=== PATIENT | female | born 1930 | race Caucasian/White ===

== ENCOUNTER 2017-02-16 12:41 | Observation (INO) | payer MEDICARE, MEDICAID ==
[2017-02-16] MEDS ORDERED: Docusate Sodium 100 MG Cap PO PRN (15:27)
[2017-02-16] MEDS ORDERED: Magnesium Hydroxide 400 MG/5 ML Susp 30 ML Cup PO PRN (15:27)
[2017-02-16] MEDS ORDERED: Polyvinyl Alcohol 1.4% Ophth Soln 15 ML Bottle EYEBOTH PRN (15:31)
[2017-02-16] MEDS ORDERED: Warfarin 2.5 MG Tab PO SCH (16:15)
[2017-02-16] MEDS: Furosemide 40 MG Tab PO SCH (16:24)
[2017-02-16] MEDS: Metolazone 2.5 MG Tab PO SCH (16:24)
[2017-02-16] MEDS: Acetaminophen/HYDROcodone 325-5 MG Tab PO SCH ×2 (16:43→20:15)
[2017-02-16] MEDS ORDERED: Menthol/Methyl Salicylate 85 GM Tube TOP PRN (16:50)
[2017-02-16] MEDS ORDERED: Menthol/Methyl Salicylate 85 GM Tube TOP SCH (17:00)
[2017-02-16] MEDS ORDERED: atorvaSTATin 10 MG Tab PO SCH (21:00)
--- NOTE | 2017-02-16 21:03 | HP ---
CHIEF COMPLAINT: The patient is being admitted from clinic where she was noted to have severe bradycardia with heart rate dropping down to 40s. HISTORY OF PRESENTING ILLNESS: Mrs. Alexandre Moreno is an 86-year-old female with medical history significant for hypertension; hyperlipidemia; type 2 diabetes mellitus; coronary artery disease, status post coronary artery bypass graft x2 in the past; chronic kidney disease; atrial fibrillation, on anticoagulation with Coumadin; monoclonal gammopathy of unknown significance; obesity; peripheral vascular disease; osteoarthritis; gout. She was initially evaluated in the clinic an on visitation, the patient was noted to have bradycardia and transferred here. At this time, patient denies any complaints of chest pain. No shortness of breath. No abdominal pain. No nausea. No vomiting. No diarrhea. No fevers. No chills. No cough. No sputum for the last few days. Lately, her metoprolol dose was increased from 25 to 37.5 mg to better control her blood pressure and as a result, is noted to have bradycardia. She also complains of increased swelling to her lower extremities. The patient denied any history of chest pains on exertion, but has mild dyspnea on exertion. No history of orthopnea, no history of paroxysmal nocturnal dyspnea. The patient denies any history of hematemesis, hematochezia, or melenic stools. Normal bowel and bladder habits otherwise. REVIEW OF SYSTEMS: A complete review of system including skin, ear, nose, and throat, cardiovascular system, respiratory system, gastrointestinal system, genitourinary system, hematology, oncology, neurology, allergy, immunology, endocrinology, and constitutional were all evaluated and were negative except for the above said notes. PAST MEDICAL HISTORY: Significant for hypertension; hyperlipidemia; atrial fibrillation, on chronic anticoagulation with Coumadin; coronary artery disease, status post coronary artery bypass graft; obesity; monoclonal gammopathy of unknown significance; history of gout; epiglottitis in the past; chronic kidney disease; peripheral vascular disease; osteoarthritis. PAST SURGICAL HISTORY: 1. Significant for vaginal ureteral dilatation and curettage. 2. Tonsillectomy. 3. Hysterectomy. 4. Coronary artery bypass graft x2. 5. Cholecystectomy. FAMILY HISTORY: Significant for hypertension and heart disease in the family. SOCIAL HISTORY: The patient denies any history of smoking tobacco. No history of alcohol intake. The patient had history of smoking in the past, but quit smoking back in 1959. ALLERGIES: The patient noted to have allergy to contrast dyes. PHYSICAL EXAMINATION: Vital signs: Temperature of 98.2, pulse of 51, blood pressure 155/58, saturating at 95% on room air, and respiratory rate of 20. General Appearance: The patient is well oriented to time, place, and person. Follows commands spontaneously. Cardiovascular System: S1, S2 heard with normal intensity. No gallops. Respiratory System: Clear to auscultation bilaterally. No wheeze. No crepitations. Abdomen: Soft. Bowel sounds positive. Nontender. No rigidity. Extremities: 2+ pitting edema in bilateral lower extremities. Neurology: No gross focal neurological deficit appreciated. Skin: No acute rash noted on the skin. HOME MEDICATIONS: Include: 1. Allopurinol 100 mg daily. 2. Lipitor 10 mg at bedtime. 3. Aspirin 325 mg daily. 4. Hydrocodone and acetaminophen 1 tab 4 times a day. 5. Multivitamin 1 tablet daily. 7. Metolazone 2.5 mg daily. 8. Toprol-XL 37.5 mg daily. 9. Coumadin 2.5 mg every evening. 10.Lasix 40 mg twice a day. LABS: Obtained in the clinic shows sodium 142, potassium 5.1, chloride 102, bicarb 28, glucose 114, creatinine 2.3, and BUN 50. Coagulation 2.3. Hematology; WBC 8.9, hemoglobin 10.4, hematocrit 31.8, and platelet count 171. IMAGING: Chest x-ray shows no acute infiltrates, possible congestion. No alveolar edema or consolidation, dependant pleural fluid. No focal or lobar pneumonia. ASSESSMENT: 1. Bradycardia. 2. Possible acute on chronic congestive heart failure with possible diastolic dysfunction. 3. Hypertension. 4. Hyperlipidemia. 5. Coronary artery disease, status post coronary artery bypass graft. 6. Atrial fibrillation on chronic anticoagulation with Coumadin. 7. Obesity. PLAN: 1. Bradycardia. The patient noted to have bradycardia. Her metoprolol dose was recently increased to 37.5 mg, we will hold the metoprolol for now. As on the telemetry, she is noted to have a heart rate dropping down to 30s. She is also noted to have possible ventricular tachycardia. We will obtain 2D echocardiogram and also a 12-lead EKG for now. We will obtain serial cardiac enzymes. We will also order for a serum B-natriuretic peptide. We will closely follow. The patient denies any ongoing chest pain. She denies any shortness of breath or dyspnea on exertion at this time. 2. Possible acute on chronic congestive heart failure. The patient noted to have 2+ edema to the lower extremities. Chest x-ray suggestive of pulmonary congestion, but on physical examination, the patient does not have much crackles to the lung exam. We will get a serum B-natriuretic peptide. She is noted to be on Lasix and metolazone, we will increase the metolazone dose for now. We will closely monitor input, output, and daily weights. We will closely follow with electrolytes. We will get a magnesium level as she is noted to have nonsustained ventricular tachycardia on the telemetry unit. We will follow the 12-lead EKG. 3. Hypertension. The patient's blood pressure seems to be elevated at this time, could be compensatory hypertension secondary to bradycardia. We will hold the Toprol-XL. We will closely follow the patient and further titrate up the medication to optimize the blood pressure as needed. 4. Coronary artery disease. The patient denies any ongoing chest pain, but given her mild cardiac decompensation, we will order for serial cardiac enzymes and follow the 12-lead EKG. 5. DVT prophylaxis. The patient is currently on Coumadin, continue the same. Pharmacy to dose the Coumadin for therapeutic INR of 2-3. 6. Chronic kidney disease, remains stable. The patient's creatinine is at 2.3. We will recheck a basic metabolic panel in a.m. Avoid any nephrotoxic agents. Dose adjust medications for renal function. 7. Discussed with Dr. Jaswant Herman, primary care physician, regarding the plan of care. Discussed with the patient and family members regarding the plan of care. Reviewed the labs and medications. Reviewed the old charts. [facility] /[id number] MTDD
[2017-02-17] MEDS ORDERED: Aspirin 325 MG Tab.EC PO SCH (08:00)
[2017-02-17] MEDS: Metolazone 2.5 MG Tab PO SCH (08:22)
[2017-02-17] MEDS: Furosemide 40 MG Tab PO SCH (08:22)
[2017-02-17] MEDS: Acetaminophen/HYDROcodone 325-5 MG Tab PO SCH (08:27)
[2017-02-17] MEDS ORDERED: Allopurinol 100 MG Tab PO SCH (09:00)
[2017-02-17] MEDS ORDERED: Calcitriol 0.25 MCG Cap PO SCH (09:00)
[2017-02-17] MEDS ORDERED: Lutein/Minerals/Vit A,C & E Tab PO SCH (09:00)
[2017-02-17] MEDS ORDERED: Multivitamins,Therapeutic Tab PO SCH (09:00)
[2017-02-17 10:55] VITALS: BP 148/41
--- NOTE | 2017-02-17 11:29 | EKG ---
02/16/2017 - AIDAN BRAND - A 12-lead EKG shows atrial fibrillation with right axis deviation and bradycardia with heart rate of 50. No significant ST elevation or ST depression noted on this 12-lead EKG. [facility] /[id number]
--- NOTE | 2017-02-17 14:50 | EKG ---
02/17/2017 - CATHIEAIDAN BEATRIZ - 12-lead EKG shows junctional escape rhythm with no significant ST elevation or ST depression. Nonspecific T-wave changes noted on lead V2. [facility] /[id number]
--- NOTE | 2017-02-17 14:52 | DISCH ---
ADMITTING DIAGNOSIS: Bradycardia. DISCHARGE DIAGNOSES: 1. Severe bradycardia with heart rate dropping down to 30 to 37. 2. Acute on chronic congestive heart failure, still awaiting for echocardiogram for evaluating diastolic versus systolic dysfunction, but previous echocardiogram showed evidence of good ejection fraction suggesting possible diastolic dysfunction at this time. 3. Acute hypoxic respiratory failure from underlying bradycardia and congestive heart failure exacerbation. 4. Atrial fibrillation, on chronic anticoagulation with Coumadin. HISTORY OF PRESENTING ILLNESS: Mrs. Alexandre Moreno is an 86-year-old female with medical history significant for hypertension; hyperlipidemia; coronary artery disease, status post coronary artery bypass graft x2 in the past; chronic kidney disease; atrial fibrillation, on chronic anticoagulation with Coumadin; monoclonal gammopathy of unknown significance; obesity; peripheral vascular disease, presented to the hospital with complaints of increasing bradycardia. She was initially evaluated in the clinic. She was noted to be on Toprol-XL and recently changed to 37.5 mg, so we admitted her under observation status and had on telemetry unit. She had persistent bradycardia with heart rate dropping down to 30 to 37 frequently. We discontinued the Toprol-XL and even after that she is noted to have bradycardia. She was also noted to be in acute on chronic congestive heart failure. She was on oral Lasix and metolazone. We continued the same while in the hospital and she was noted to have a drop in weight up to 3 pounds, and also her edema is much improved from the time of admission, but she was noted to be hypoxic this morning. As she would need further evaluation, the patient will be transferred to higher level of care that is [facility], the closest facility for Cardiology evaluation and possible pacemaker placement. She remained hemodynamically stable on this admission. She is discharged to [facility] in stable condition. She will require ground ambulance for the transfer with ALS on board. DISCHARGE MEDICATIONS: Include: 1. Allopurinol 100 mg daily. 2. Aspirin 325 mg daily. 3. Calcitriol 0.25 mg daily. 4. Lasix 40 mg twice a day. 5. Hydrocodone acetaminophen 1 tablet 4 times a day. 6. Salicylate cream topical 4 times daily as needed for pain. 7. Metolazone 2.5 mg twice a day. 8. Multivitamin 1 tablet daily. 9. Coumadin 2.5 mg every evening. 10.Lipitor 10 mg at bedtime. The patient is advised to stop taking her Toprol-XL 37.5 mg. PHYSICAL EXAMINATION: Vital Signs: On the day of discharge; temperature of 98.2, pulse of 45, respiratory rate of 20, blood pressure 149/42, saturating at 97%, requiring 2 L of oxygen. General Appearance: The patient is well oriented to time, place, and person. Follows commands spontaneously. Cardiovascular System: S1 and S2 heard with normal intensity. Irregular in rate. Respiratory System: Mild crepitations at the bases. No wheeze. Abdomen: Soft. Bowel sounds positive. Nontender. No rigidity. Extremities: 1 to 2+ pitting edema of bilateral lower extremities, improved from the time of admission. Neurology: No gross focal neurological deficit. Skin: No acute rash noted. CONDITION ON ADMISSION: Poor. CONDITION ON DISCHARGE: Stable. Discharged to [facility] for Cardiology evaluation for severe bradycardia. ACTIVITY: As tolerated with fall precautions. DIET: Cardiac healthy diet. FOLLOWUP: Follow with primary care physician one to two weeks post discharge from [facility]. Spent over 35 minutes of time in evaluating and treating this patient, and making discharge plans. [facility] /[id number]
== END 2017-02-17 10:15 ==
LOC: UNDOADMOB 15:21 → DL.MS 15:21
PROVIDERS: ADMIT Internal Medicine; ATTEND Internal Medicine
DX: R00.1 Bradycardia, unspecified (principal); I25.810 Atherosclerosis of coronary artery bypass graft(s) without angina pectoris; E11.22 Type 2 diabetes mellitus with diabetic chronic kidney disease; I13.0 Hypertensive heart and chronic kidney disease with heart failure and stage 1 through stage 4 chronic kidney disease, or unspecified chronic kidney disease; N18.9 Chronic kidney disease, unspecified; I50.33 Acute on chronic diastolic (congestive) heart failure; J96.01 Acute respiratory failure with hypoxia; I48.91 Unspecified atrial fibrillation; E78.5 Hyperlipidemia, unspecified; Z79.01 Long term (current) use of anticoagulants; I73.9 Peripheral vascular disease, unspecified; Z90.49 Acquired absence of other specified parts of digestive tract; Z90.710 Acquired absence of both cervix and uterus; Z98.890 Other specified postprocedural states; Z87.891 Personal history of nicotine dependence; Z91.041 Radiographic dye allergy status; E66.9 Obesity, unspecified
CPT/HCPCS: 36415; 71010; 80048; 83735; 83880; 84100; 84484; 85025; 93005; 93010; 93306; A9270; G0378; 99217; 99220; G0379

== ENCOUNTER 2017-04-26 08:00 | Emergency (ER) | payer MEDICARE, MEDICAID ==
--- NOTE | 2017-04-26 08:33 | EDM.PDOC ---
ED HPI GENERAL MEDICAL PROBLEM - General Chief Complaint: Flank Pain Stated Complaint: BY AMBULANCE Time Seen by Provider: 04/26/17 08:15 Source of Information: Reports: Patient, EMS History Limitations: Reports: No Limitations - History of Present Illness INITIAL COMMENTS - FREE TEXT/NARRATIVE: This 86 yo female patient was brought to the ED by [facility] due to right flank pain. The patient reports she has been having similar pains for the past 2 months, but her pain increased over the past 24 hours. The patient reports she does have an appointment this afternoon in the clinic and an appointment with a kidney specialist tomorrow. The patient reports she could not take the pain any longer and called the ambulance to bring her to the ED. The patient did not take any pain medications today for temporary symptom relief. This patient has a history of hypertension, hyperlipidemia, CHF, A-fib (on coumadin), CAD, Type 2 Diabetes, Coronary artery bypass x2, CKD, osteoarthritis, and gout. Onset: Gradual Duration: Day(s): (2), Constant, Getting Worse Location: Reports: Back (right flank) Quality: Reports: Ache, Sharp Severity: Severe Improves with: Reports: Rest Worsens with: Reports: Movement Context: Reports: Other Associated Symptoms: Reports: No Other Symptoms Right Lower Back Pain Score (Numeric/FACES): 5 - Related Data Allergies Allergy/AdvReac Type Severity Reaction Status Date / Time Beef Containing Products Allergy Stomach Verified 04/26/17 08:12 Upset IVP dye Allergy Cannot Uncoded 02/12/14 09:15 Remember Home Meds: Home Meds Aspirin [Ecotrin] 325 mg PO DAILY 02/12/14 [History] Lutein/Minerals/Vit A,C & E [Ocuvite] 1 tab PO DAILY 02/12/14 [History] Multivitamin [Multivitamins] 1 each PO DAILY 02/12/14 [History] Warfarin Sodium [Jantoven] 2.5 mg PO .EVENING 02/12/14 [History] atorvaSTATin [Lipitor] 10 mg PO BEDTIME 02/12/14 [History] Allopurinol [Zyloprim] 100 mg PO DAILY 02/16/17 [History] Calcitriol [Rocaltrol] 0.25 mcg PO ASDIRECTED 02/16/17 [History] Hydrocodone/Acetaminophen [Hydrocodon-Acetaminophen 5-325] 1 tab PO QID [History] Menthol/Methyl Salicylate [Icy Hot Cream] 0.1 gm TOP QID PRN 02/16/17 [History] [place]ol[place] 2[place] [address]/16/17 [History] Acetaminophen [Tylenol Arthritis] 1 tab PO QID PRN 04/26/17 [History] Bumetanide 1 mg PO DAILY 04/26/17 [History] Bumetanide [Bumex] 1 tab PO DAILY 04/26/17 [History] Metoprolol Succinate [Toprol XL] 37.5 mg PO DAILY 04/26/17 [History] Propylene Glycol/Peg 400 [Systane Liquid Gel Eye Drops] 1 drop EYEBOTH QID PRN 04/26/17 [History] Past Medical History HEENT History: Reports: Cataract, Macular Degeneration Cardiovascular History: Reports: Afib, CAD, Heart Failure, High Cholesterol, Hypertension, Pacemaker, Other (See Below) Other Cardiovascular History: peripheral vascular disease Respiratory History: Reports: Pneumonia, Recurrent Gastrointestinal History: Reports: Cholelithiasis Genitourinary History: Reports: Chronic Renal Insuffiency Musculoskeletal History: Reports: Gout, Osteoarthritis Psychiatric History: Reports: Anxiety Endocrine/Metabolic History: Reports: Hyperparathyroidism Hematologic History: Reports: Anemia - Past Surgical History HEENT Surgical History: Reports: Adenoidectomy, Cataract Surgery, Tonsillectomy Cardiovascular Surgical History: Reports: Coronary Artery Bypass GI Surgical History: Reports: Appendectomy, Cholecystectomy Female Surgical History: Reports: Hysterectomy Musculoskeletal Surgical History: Reports: None Social & Family History - Tobacco Use Smoking Status *Q: Former Smoker Years of Tobacco use: 6 Packs/Tins Daily: 3 Used Tobacco, but Quit: Yes Month Tobacco Last Used: 20 years ago Second Hand Smoke Exposure: Yes - Caffeine Use Caffeine Use: Reports: Coffee - Recreational Drug Use Recreational Drug Use: No ED ROS GENERAL - Review of Systems Review Of Systems: ROS reveals no pertinent complaints other than HPI. ED EXAM, GI/ABD - Physical Exam Exam: See Below Exam Limited By: No Limitations General Appearance: Alert, WD/WN, Moderate Distress Eyes: Bilateral: Normal Appearance, EOMI Ears: Normal External Exam, Normal Canal, Hearing Grossly Normal, Normal TMs Nose: Normal Inspection, Normal Mucosa, No Blood Throat/Mouth: Normal Inspection, Normal Lips, Normal Teeth, Normal Gums, Normal Oropharynx, Normal Voice, No Airway Compromise Head: Atraumatic, Normocephalic Neck: Normal Inspection, Supple, Non-Tender, Full Range of Motion Respiratory/Chest: No Respiratory Distress Cardiovascular: Normal Peripheral Pulses, Regular Rate, Rhythm, No Edema, No Gallop, No JVD, No Murmur, No Rub GI/Abdominal Exam: Normal Bowel Sounds, Soft, No Distention, No Abnormal Bruit, No Mass, Pelvis Stable, Tender (right lower quadrant tenderness to palpation) (Female) Exam: Deferred Rectal (Female) Exam: Deferred Back Exam: Decreased Range of Motion, Paraspinal Tenderness Extremities: Normal Inspection, Normal Range of Motion, Non-Tender, Normal Capillary Refill, No Pedal Edema Neurological: Alert, Oriented, CN II-XII Intact, Normal Cognition, Normal Gait, Normal Reflexes, No Motor/Sensory Deficits Psychiatric: Normal Affect, Normal Mood Skin Exam: Warm, Dry, Intact, Normal Color, No Rash Lymphatic: No Adenopathy Course - Vital Signs Last Recorded V/S: Last Vital Signs Temp 36.6 C 04/26/17 08:37 Pulse 69 04/26/17 08:37 Resp 20 04/26/17 08:37 BP 123/63 04/26/17 08:37 Pulse Ox 94 L 04/26/17 08:37 - Orders/Labs/Meds Labs: Laboratory Tests 04/26/17 04/26/17 04/26/17 Range/Units 08:24 08:24 08:24 WBC 9.7 (5.0-10.0) 10^3/uL RBC 4.09 L (4.2-5.4) 10^6/uL Hgb 12.1 (12.0-16.0) g/dL Hct 35.6 L (37.0-47.0) % MCV 87.0 (80-100) fL MCH 29.6 (27.0-34.0) pg MCHC 34.0 (33.0-35.0) g/dL Plt Count 214 (150-450) 10^3/uL Neut % (Auto) 75.4 H (42.2-75.2) % Lymph % (Auto) 13.7 L (20.5-50.1) % [place] % (Auto) 7.7 (2-8) % Eos % (Auto) 2.5 (1.0-3.0) % Baso % (Auto) 0.7 (0.0-1.0) % PT (9.0-12.0) SEC INR (0.9-1.2) Sodium 135 (135-145) mmol/L Potassium 3.3 L (3.6-5.0) mmol/L Chloride 93 L (101-111) mmol/L Carbon Dioxide 28.0 (21.0-31.0) mmol/L Anion Gap 17.3 BUN 53 H (7-18) mg/dL Creatinine 1.6 H (0.6-1.3) mg/dL Est Cr Clr Drug Dosing 19.59 mL/min Estimated GFR (MDRD) 30 BUN/Creatinine Ratio 33.12 Glucose 117 H (74-105) mg/dL Calcium 9.8 (8.4-10.2) mg/dl Total Bilirubin 0.7 (0.2-1.0) mg/dL AST 19 (10-42) IU/L ALT 12 (10-60) IU/L Alkaline Phosphatase 86 (42-121) IU/L B-Natriuretic Peptide 1950 H (0-100) pg/ml Total Protein 7.4 (6.7-8.2) g/dl Albumin 3.6 (3.2-5.5) g/dl Globulin 3.8 Albumin/Globulin Ratio 0.95 Urine Color (YELLOW) Urine Appearance (CLEAR) Urine pH (5.0-9.0) Ur Specific [place] (1.005-1.030) Urine Protein (NEGATIVE) Urine Glucose (UA) (NEGATIVE) Urine Ketones (NEGATIVE) Urine Occult Blood (NEGATIVE) Urine Nitrite (NEGATIVE) Urine Bilirubin (NEGATIVE) Urine Urobilinogen (0.2-1.0) mg/dL Ur Leukocyte Esterase (NEGATIVE) Urine RBC /HPF Urine WBC (0-5/HPF) /HPF Ur Epithelial Cells /HPF 04/26/17 04/26/17 Range/Units 08:24 08:27 WBC (5.0-10.0) 10^3/uL RBC (4.2-5.4) 10^6/uL Hgb (12.0-16.0) g/dL Hct (37.0-47.0) % MCV (80-100) fL MCH (27.0-34.0) pg MCHC (33.0-35.0) g/dL Plt Count (150-450) 10^3/uL Neut % (Auto) (42.2-75.2) % Lymph % (Auto) (20.5-50.1) % [place] % (Auto) (2-8) % Eos % (Auto) (1.0-3.0) % Baso % (Auto) (0.0-1.0) % PT 23.8 H (9.0-12.0) SEC INR 2.4 H (0.9-1.2) Sodium (135-145) mmol/L Potassium (3.6-5.0) mmol/L Chloride (101-111) mmol/L Carbon Dioxide (21.0-31.0) mmol/L Anion Gap BUN (7-18) mg/dL Creatinine (0.6-1.3) mg/dL Est Cr Clr Drug Dosing mL/min Estimated GFR (MDRD) BUN/Creatinine Ratio Glucose (74-105) mg/dL Calcium (8.4-10.2) mg/dl Total Bilirubin (0.2-1.0) mg/dL AST (10-42) IU/L ALT (10-60) IU/L Alkaline Phosphatase (42-121) IU/L B-Natriuretic Peptide (0-100) pg/ml Total Protein (6.7-8.2) g/dl Albumin (3.2-5.5) g/dl Globulin Albumin/Globulin Ratio Urine Color Yellow (YELLOW) Urine Appearance Clear (CLEAR) Urine pH 6.0 (5.0-9.0) Ur Specific [place] <= 1.005 (1.005-1.030) Urine Protein Negative (NEGATIVE) Urine Glucose (UA) Negative (NEGATIVE) Urine Ketones Negative (NEGATIVE) Urine Occult Blood Negative (NEGATIVE) Urine Nitrite Negative (NEGATIVE) Urine Bilirubin Negative (NEGATIVE) Urine Urobilinogen 0.2 (0.2-1.0) mg/dL Ur Leukocyte Esterase Trace H (NEGATIVE) Urine RBC Not seen /HPF Urine WBC 0-5 (0-5/HPF) /HPF Ur Epithelial Cells Rare /HPF Meds: Medications Discontinued Medications Generic Name Dose Route Start Last Admin Trade Name Freq PRN Reason Stop Dose Admin Hydrocodone Bitart/Acetaminophen 1 tab 04/26/17 09:14 04/26/17 09:20 [place] 325-10 Mg PO 04/26/17 09:15 1 tab ONETIME ONE Administration - Re-Assessments/Exams Free Text/Narrative Re-Assessment/Exam: 04/26/17 09:19 The patient was advised of the examination and lab results. The patient was given a [place] () for temporary symptom relief. 04/26/17 10:05 The patient reports her pain in much better now and is ready to go back to her home. Departure - Departure Time of Disposition: 10:05 Disposition: Home, Self-Care 01 Condition: Fair Clinical Impression: Low back strain Qualifiers: Encounter type: initial encounter Qualified Code(s): S39.012A - Strain of muscle, fascia and tendon of lower back, initial encounter - Discharge Information Instructions: Lumbosacral Strain, Back Pain, Adult, [id number] Forms: ED Department Discharge Care Plan Goals: The patient was advised of the examination and lab results during the visit. The patient was given an oral dose of [place] while in the ED. The patient was encouraged to remain active, but avoid heavy lifting or bending over the next 48 hours. If the patient has any additional symptoms or concerns, the patient should either follow-up with her primary care facility or return to the emergency department.
[2017-04-26 08:39] VITALS: BP 123/63
[2017-04-26] MEDS ORDERED: Acetaminophen/HYDROcodone 325-10 MG Tab PO ONE (09:14)
== END 2017-04-26 10:50 | disposition home or self-care (01) ==
LOC: DL.ED 08:00
DX: S39.012A Strain of muscle, fascia and tendon of lower back, initial encounter (principal); E78.5 Hyperlipidemia, unspecified; I50.9 Heart failure, unspecified; I48.91 Unspecified atrial fibrillation; I25.10 Atherosclerotic heart disease of native coronary artery without angina pectoris; I13.0 Hypertensive heart and chronic kidney disease with heart failure and stage 1 through stage 4 chronic kidney disease, or unspecified chronic kidney disease; E11.22 Type 2 diabetes mellitus with diabetic chronic kidney disease; N18.9 Chronic kidney disease, unspecified; M19.90 Unspecified osteoarthritis, unspecified site; E21.3 Hyperparathyroidism, unspecified; Z95.1 Presence of aortocoronary bypass graft; Z98.49 Cataract extraction status, unspecified eye; Z90.49 Acquired absence of other specified parts of digestive tract; Z90.710 Acquired absence of both cervix and uterus; Z87.891 Personal history of nicotine dependence; Z79.82 Long term (current) use of aspirin; Z79.01 Long term (current) use of anticoagulants; Z79.899 Other long term (current) drug therapy; Z91.018 Allergy to other foods; Z91.041 Radiographic dye allergy status; X58.XXXA Exposure to other specified factors, initial encounter
CPT/HCPCS: 36415; 80053; 81001; 83880; 85025; 85610; 99284; A9270; 99283

== ENCOUNTER 2018-09-23 11:11 | Inpatient (IN) | payer MEDICARE, MEDICAID ==
[2018-09-23] MEDS ORDERED: Bisacodyl 10 MG Supp RECTAL PRN (16:51)
[2018-09-23] MEDS ORDERED: Sodium Chloride 0.9% 10 ML Syringe FLUSH PRN (17:02)
[2018-09-23 18:00] LABS: ANION GAP 16.5
--- NOTE | 2018-09-23 18:13 | CT ---
Clinical history: 88-year-old female with CHF, stage IV renal failure, and "fluid retention" (20 pound weight gain) being considered for "aggressive IV diuresis" and possible hemodialysis. Evaluate for "third space" fluids. Scan technique: Volume acquisition of data unenhanced CT scan of the chest abdomen and pelvis obtained while the patient was lying supine on the Siemens multi slice scanner [place], [place]. All data archived in the PACS system for storage, reformatting/sagittal/coronal planes and study. Interpretation: Abnormal. 1. Large heart; extensive atheromatous calcifications (coronary arteries and aorta); cardiac pacemaker leads intact. 2. Generalized pulmonary venous congestion/cephalization but no alveolar edema. No pericardial effusion. 3. Asymmetric small (1/6 volume hemithorax) dependent right pleural effusion. (Underlying right lower lobe atelectasis) 4. *Generalized anasarca i.e. extensive subcutaneous cutaneous edema. 5. Small volume ascites identified over the liver capsule and in the dependent paracolic gutter, on the right. 6. No lung mass or focal lobar pneumonia. No abdominal or pelvic mass lesion (sigmoid diverticulosis). No lymphadenopathy. 7. Bilateral small scarred kidneys with normal configuration. No nephrolithiasis or signs of obstructive uropathy. 8. Osteopenia, multilevel disc disease and chronic arthritic changes of the dorsal lumbar spine. Dense calcifications normal caliber aorta i.e. no sign of aneurysm or dissection. CONCLUSION: Small dependent right pleural effusion and small collection of ascites mostly on the right. Anasarca.
[2018-09-23] MEDS: Acetaminophen/HYDROcodone 325-5 MG Tab PO PRN (19:36)
[2018-09-23] MEDS: Carvedilol 6.25 MG Tab PO SCH (19:37)
[2018-09-23] MEDS: Potassium Chloride 10 MEQ Tab.ER PO SCH (20:00)
[2018-09-23] MEDS ORDERED: Warfarin 2.5 MG Tab PO SCH (21:00)
[2018-09-23] MEDS ORDERED: Non-Formulary Medication 1 Each (Propylene Glycol/Peg 400 [Systane Liquid Gel Eye Drops] 1 EYEBOTH SCH (21:00)
[2018-09-23] MEDS ORDERED: hydrOXYzine HCl 25 MG Tab PO ONE (21:38)
[2018-09-23] MEDS ORDERED: Furosemide 100 MG in Sodium Chloride 0.9% 90 ML IV SCH (22:15)
[2018-09-23] MEDS: Furosemide 100 MG in Sodium Chloride 0.9% 90 ML IV SCH (22:24)
[2018-09-24] MEDS: Furosemide 100 MG in Sodium Chloride 0.9% 90 ML IV SCH ×4 (03:16→18:09)
[2018-09-24] MEDS ORDERED: Potassium Chloride 20 MEQ in Premix Bag 1 BAG IV ONE ×2 (06:37→09:33)
[2018-09-24] MEDS: Carvedilol 6.25 MG Tab PO SCH (07:31)
--- NOTE | 2018-09-24 07:44 | HP ---
REASON FOR ADMISSION: Anasarca and fluid overload with a background history of stage IV renal failure. Admitted for aggressive diuresis. HISTORY OF PRESENT ILLNESS: Mrs. Schroeder is an 88-year-old lady who is a resident of [facility] here in [place]. We received a call from the nurse engineering manager electronics there today that Dr. Teixeira, Mrs. Schroeder's Guide Changer, asked that she be referred to the hospital for admission and that we undertake aggressive diuresis. Mrs. Schroeder has a history of stage 4 kidney disease, as well as CHF with an ejection fraction of 35% to 40%, and has slowly been adding weight and edema over the last month and a half. Her documented weight on 08/05/2018 was 160 pounds; on 08/29/2018, her weight was 164 pounds; and today, her weight was 180.5 pounds at the time of admission. Dr. Teixeira had sent a message to [facility] asking that she be admitted, and that we begin treatment with IV Bumex and oral metolazone. She was made a direct admission for further evaluation and management. PAST MEDICAL HISTORY: Includes coronary artery disease with CABG in 1981 with revision in 1998, hypertension, peripheral vascular disease. Atrial fibrillation, on chronic Coumadin anticoagulation (INR 2 to 3). She has MGUS, which is stable, and is followed by Dr. Bejarano. She also has history of dyslipidemia, secondary hyperparathyroidism, moderate pulmonary hypertension, and gout. 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 She has been hospitalized for CHF and symptomatic bradycardia. Current diuretic therapy includes Bumex and metolazone. A recent echo shows an ejection fraction of 30% to 35%. There have been multiple changes made in her diuretic therapy, depending on weight gain, weight loss, overall condition. PAST SURGICAL HISTORY: Cardiac pacemaker placement in 2016, hysterectomy, appendectomy, cholecystectomy, D and C in 1966, tonsillectomy, and coronary artery bypass in 1981 and 1998 as mentioned above. SOCIAL HISTORY: She is . She and her reside at the [facility]. She has two twin daughters and a son. One of her daughters, Ratna, suffered cardiac arrest about 10 years ago. She had anoxic encephalopathy and has been in [facility] since that time. Her other daughter, Margareth Navarro, is Tiffanie's POA. MEDICATIONS: Her medication list from [facility] was reviewed and her Epic medications are reviewed and reconciled as well and placed in [facility]. ALLERGIES: She has allergies to beef flavor (unknown) and to iodinated contrast material to which she develops a rash. PHYSICAL EXAMINATION: General: She is a frail elderly lady who is lying comfortably in bed. She is alert, but in speaking to her, it is clear that she appears to have some cognitive impairment. HEENT: Unremarkable. ENT was clear. Chest: Showed clear but diminished bilateral breath sounds. Faint basilar crackles. Heart: Showed regular rate and rhythm. Abdomen: Obese and benign. Extremities: An overall skin exam showed significant edema, i.e., anasarca, with pitting edema above the level of the thighs. Neurological: There are no gross motor or sensory deficits. There is clearly some cognitive impairment. LABORATORY DATA: CBC showed a white count of 5.8, hemoglobin and hematocrit were 8 and 27, platelets 143,000. INR 3.1. Sodium 131, potassium 3.5, BUN 63 with a creatinine of 2.1. The GFR of 22 and a creatinine clearance of 14. Nonfasting blood sugar 111, magnesium 1.7. BNP was 2560. DIAGNOSTIC DATA: Prior to undertaking the diuresis, we opted for a noncontrast CT scan of the chest, abdomen and pelvis to rule out possibility of significant pleural effusions or ascites. CT scan showed cardiomegaly with extensive calcifications in the areas of the coronary arteries and aorta. Pacemaker leads were intact. There is generalized pulmonary venous congestion, but no alveolar edema. No pericardial effusion. There was asymmetric small dependent right pleural effusion. No significant fluid collection in the abdomen. There is generalized anasarca seen extensively in subcutaneous tissues. No pneumonia. IMPRESSION: An 88-year-old lady with stage 4 kidney disease, presents with anasarca and significant weight gain in the last month and a half. PLAN: Mrs. Schroeder was admitted as an acute inpatient, and we began diuresis. Dr. Teixeira had suggested IV Bumex, but this is not available to us, so she was started on IV furosemide at 20 mg/hour. Dr. Early will decide on the use of the metolazone. Dr. Teixeira's goal is to get her weight back down to 150 pounds. I am not sure how realistic this goal is. Overnight, between the time of admission and the following morning, she has diuresed almost 2 L. A Owen catheter was placed for more accurate measurement of her urinary output, and we will obtain daily weights as well. CONDITION AT THE TIME OF ADMISSION: Hemodynamically stable. CODE STATUS: DNR. DNI. (Discussed with MARÍA.) [facility] /[id number] MTDD
[2018-09-24] MEDS: Acetaminophen/HYDROcodone 325-5 MG Tab PO PRN ×3 (08:36→21:23)
[2018-09-24] MEDS: Metolazone 2.5 MG Tab PO SCH (08:39)
[2018-09-24] MEDS: Potassium Chloride 10 MEQ Tab.ER PO SCH ×4 (08:40→20:00)
[2018-09-24] MEDS: Carboxymethylcellulose Sodium 1% Ophth Gel 0.4 ML UD EYEBOTH SCH ×3 (08:50→20:00)
[2018-09-24] MEDS: hydrOXYzine HCl 25 MG Tab PO PRN ×2 (08:51→20:01)
[2018-09-24] MEDS ORDERED: MAGNESIUM CHLORIDE PO SCH (12:00)
--- NOTE | 2018-09-24 13:19 | PCM.PN ---
- General Info Date of Service: 09/24/18 Admission Dx/Problem (Free Text): admitted with: Generalized Anasarca, Volume overload, weight gain of 30 lbs in a one and half week Subjective Update: Pt was seen in room doing well, No increased shortness of breath, No nausea or vomiting, No fever or Chill Functional Status: Reports: Pain Controlled, Tolerating Diet, Urinating (has kelly Catheter) - Review of Systems General: Reports: Appetite (good). Denies: Fever, Weakness, Chills HEENT: Denies: Headaches, Sinus Congestion, Sore Throat, Visual Changes Pulmonary: Denies: Shortness of Breath, Cough, Wheezing Cardiovascular: Denies: Chest Pain, Dyspnea on Exertion, Lightheadedness Gastrointestinal: Denies: Abdominal Pain, Difficulty Swallowing, Nausea, Vomiting Genitourinary: Denies: Dysuria, Frequency, Burning, Urgency Musculoskeletal: Denies: Neck Pain, Shoulder Pain, Foot Pain Neurological: Denies: Numbness, Tingling, Tremors Psychiatric: Denies: Confusion, Anxiety - Patient Data Vitals - Most Recent: Last Vital Signs Temp 37.1 C 09/24/18 11:53 Pulse 77 09/24/18 11:53 Resp 18 09/24/18 11:53 BP 117/55 L 09/24/18 11:53 Pulse Ox 94 L 09/24/18 11:53 Weight - Most Recent: 80.422 kg I&O - Last 24 Hours: Intake & Output 09/23/18 09/24/18 09/24/18 22:59 06:59 14:59 Intake Total 250 639 309 Output Total 1150 1350 1450 Balance -720 -573 -9108 Lab Results Last 24 Hours: Laboratory Results - last 24 hr 09/23/18 09/23/18 09/23/18 Range/Units 17:33 17:33 17:33 WBC 5.8 (5.0-10.0) 10^3/uL RBC 3.87 L (4.2-5.4) 10^6/uL Hgb 8.0 L (12.0-16.0) g/dL Hct 26.9 L (37.0-47.0) % MCV 69.5 L (80-100) fL MCH 20.7 L (27.0-34.0) pg MCHC 29.7 L (33.0-35.0) g/dL Plt Count 143 L (150-450) 10^3/uL Neut % (Auto) 70.0 (42.2-75.2) % Lymph % (Auto) 11.9 L (20.5-50.1) % [place] % (Auto) 14.5 H (2-8) % Eos % (Auto) 2.4 (1.0-3.0) % Baso % (Auto) 1.2 H (0.0-1.0) % PT 30.2 H (9.0-12.0) SEC INR 3.1 H (0.9-1.2) Sodium 131 L (135-145) mmol/L Potassium 3.5 L (3.6-5.0) mmol/L Chloride 90 L (101-111) mmol/L Carbon Dioxide 28.0 (21.0-31.0) mmol/L Anion Gap 16.5 BUN 63 H (7-18) mg/dL Creatinine 2.1 H (0.6-1.3) mg/dL Est Cr Clr Drug Dosing 14.36 mL/min Estimated GFR (MDRD) 22 BUN/Creatinine Ratio 30.00 Glucose 111 H (74-105) mg/dL Uric Acid 6.1 (2.6-7.2) mg/dL Calcium 9.1 (8.4-10.2) mg/dl Magnesium 1.7 L (1.8-2.5) mg/dL Total Bilirubin 1.1 H (0.2-1.0) mg/dL AST 32 (10-42) IU/L ALT 13 (10-60) IU/L Alkaline Phosphatase 91 (42-121) IU/L B-Natriuretic Peptide 2560 H (0-100) pg/ml Total Protein 6.8 (6.7-8.2) g/dl Albumin 3.8 (3.2-5.5) g/dl Globulin 3.0 Albumin/Globulin Ratio 1.27 09/24/18 09/24/18 Range/Units 05:40 05:40 WBC (5.0-10.0) 10^3/uL RBC (4.2-5.4) 10^6/uL Hgb (12.0-16.0) g/dL Hct (37.0-47.0) % MCV (80-100) fL MCH (27.0-34.0) pg MCHC (33.0-35.0) g/dL Plt Count (150-450) 10^3/uL Neut % (Auto) (42.2-75.2) % Lymph % (Auto) (20.5-50.1) % [place] % (Auto) (2-8) % Eos % (Auto) (1.0-3.0) % Baso % (Auto) (0.0-1.0) % PT 26.2 H (9.0-12.0) SEC INR 2.7 H (0.9-1.2) Sodium (135-145) mmol/L Potassium 2.5 L (3.6-5.0) mmol/L Chloride (101-111) mmol/L Carbon Dioxide (21.0-31.0) mmol/L Anion Gap BUN 61 H (7-18) mg/dL Creatinine 2.0 H (0.6-1.3) mg/dL Est Cr Clr Drug Dosing 15.08 mL/min Estimated GFR (MDRD) 23 BUN/Creatinine Ratio Glucose (74-105) mg/dL Uric Acid (2.6-7.2) mg/dL Calcium (8.4-10.2) mg/dl Magnesium 1.6 L (1.8-2.5) mg/dL Total Bilirubin (0.2-1.0) mg/dL AST (10-42) IU/L ALT (10-60) IU/L Alkaline Phosphatase (42-121) IU/L B-Natriuretic Peptide (0-100) pg/ml Total Protein (6.7-8.2) g/dl Albumin (3.2-5.5) g/dl Globulin Albumin/Globulin Ratio Med Orders - Current: Current Medications Acetaminophen (Tylenol) 650 mg PO Q4H PRN PRN Reason: Pain (mild 1-3 )/fever Hydrocodone Bitart/Acetaminophen ([place] 325-5 Mg) 1 tab PO Q6H PRN PRN Reason: Pain Last Admin: 09/24/18 08:36 Dose: 1 tab Artificial Tears (Refresh Celluvisc) 0 each EYEBOTH TID [facility] Last Admin: 09/24/18 08:50 Dose: 1 each Bisacodyl (Dulcolax) 10 mg RECTAL DAILY PRN PRN Reason: Constipation Calcitriol (Rocaltrol) 0.25 mcg PO MoFr@0800 [facility] Hydroxyzine HCl (Atarax) 12.5 mg PO Q8H PRN PRN Reason: Itching Last Admin: 09/24/18 08:51 Dose: 12.5 mg Furosemide 100 mg/ Sodium (Chloride) 100 mls @ 20 mls/hr IV CONTINUOUS [facility] Last Admin: 09/24/18 13:04 Dose: 20 mg/hr, 20 mls/hr Metolazone (Zaroxolyn) 2.5 mg PO DAILY [facility] Last Admin: 09/24/18 08:39 Dose: 2.5 mg Non-Formulary Medication (Magnesium Chloride [Magnesium Chloride]) 70 mg PO WITHLUNCH [facility] Potassium Chloride (Klor-Con 10) 40 meq PO QID [facility] Last Admin: 09/24/18 13:08 Dose: 40 meq Sodium Chloride (Saline Flush) 10 ml FLUSH ASDIRECTED PRN PRN Reason: Keep Vein Open Spironolactone (Aldactone) 25 mg PO BIDDIURETIC [facility] Warfarin Sodium (Pharmacy To Dose - Warfarin) 1 dose .XX ASDIRECTED [facility] Warfarin Sodium (Coumadin) 2.5 mg PO ONETIME ONE Stop: 09/24/18 14:01 Discontinued Medications Carvedilol (Coreg) 6.25 mg PO BIDMEALS [facility] Last Admin: 09/24/18 07:31 Dose: 6.25 mg Hydroxyzine HCl (Atarax) 12.5 mg PO ONETIME ONE Stop: 09/23/18 21:39 Last Admin: 09/23/18 22:08 Dose: 12.5 mg Furosemide 100 mg/ Sodium (Chloride) 100 mls @ 20 mls/hr IV CONTINUOUS [facility] Potassium Chloride 20 meq/ (Premix) 100 mls @ 50 mls/hr IV ONETIME ONE Stop: 09/24/18 08:36 Last Infusion: 09/24/18 10:16 Dose: Infused Potassium Chloride 20 meq/ (Premix) 100 mls @ 50 mls/hr IV ONETIME ONE Stop: 09/24/18 11:32 Last Infusion: 09/24/18 12:48 Dose: Infused Non-Formulary Medication (Propylene Glycol/Peg 400 [Systane Liquid Gel Eye Drops ]) 1 drop EYEBOTH QID [facility] Last Admin: 09/24/18 05:49 Dose: Not Given Potassium Chloride (Klor-Con 10) 40 meq PO TID [facility] Last Admin: 09/24/18 08:40 Dose: 40 meq Sodium Chloride (Saline Flush) 10 ml FLUSH ASDIRECTED PRN PRN Reason: Keep Vein Open Warfarin Sodium (Coumadin) 2.5 mg PO BEDTIME [facility] - Exam Quality Assessment: Urine Catheter, DVT Prophylaxis. No: Supplemental Oxygen General: Alert, Oriented, Cooperative, No Acute Distress HEENT: Pupils Equal, Mucous Membr. Moist/[place] Neck: Supple, No JVD, No Thyromegaly. No: Thyromegaly Lungs: Clear to Auscultation, Normal Respiratory Effort Cardiovascular: Irregular Rhythm, Murmurs GI/Abdominal Exam: Normal Bowel Sounds, Soft, Non-Tender, No Distention. No: Rigid, Rebound (Female) Exam: Deferred Back Exam: Normal Inspection, Full Range of Motion Extremities: Normal Inspection, Pedal Edema (2-3 + pedal edema upto thighs) Skin: Warm, Dry, Intact Neurological: No New Focal Deficit Psy/Mental Status: Alert, Normal Affect, Normal Mood - Problem List & Annotations (1) Hypokalemia SNOMED Code(s): 95358095 Code(s): E87.6 - HYPOKALEMIA Status: Acute Current Visit: Yes (2) Anasarca associated with disorder of kidney SNOMED Code(s): 03103332361482 Code(s): N04.9 - NEPHROTIC SYNDROME WITH UNSPECIFIED MORPHOLOGIC CHANGES Status: Acute Priority: High Current Visit: Yes (3) Weight gain Status: Acute Current Visit: Yes (4) CKD (chronic kidney disease) stage 4, GFR 15-29 ml/min SNOMED Code(s): 470926248 Code(s): N18.4 - CHRONIC KIDNEY DISEASE, STAGE 4 (SEVERE) Status: Chronic Priority: Medium Current Visit: Yes (5) Afib SNOMED Code(s): 60436619 Code(s): I48.91 - UNSPECIFIED ATRIAL FIBRILLATION Status: Acute Current Visit: No - Problem List Review Problem List Initiated/Reviewed/Updated: Yes - My Orders Last 24 Hours: My Active Orders 09/24/18 13:00 Potassium Chloride [Klor-Con 10] 40 meq PO QID 09/24/18 13:50 POTASSIUM,K [CHEM] Routine 09/24/18 14:00 Spironolactone [Aldactone] 25 mg PO BIDDIURETIC - Plan Plan:: This is a 88 y?O Female resident of [facility] at [place], with past medical history of 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 Generalized anasarca: This is likely from eating foods with high salt content because the weight gain is sudden with no chest pain or cardiac Issue ( eat lots of ham and salami during the holiday season) and also soup -Discussed with pt to avoid foods with high salt -Will continue lasix at 20 mg/hr drip -Continue Metolazone at 2.5 mg daily -BMP daily and daily weight -Continue I/O recording 2. Hypokalemia: She has severe hypokalemia from diuresis and also metolazone -Will moshe oral potassium to 40 meq QID [ was at 40 meq TID] -Will also give potassium chloride 40 meq IV X 1 dose -Recheck Potassium 1 hr after completion of IV potassium -Will start Aldactone at 25 mg daily 3. Hypertension: BP acceptable and will change coreg to 3.125 mg BID [ was at 6.25 mg BID] and start aldactone at 25 mg daily 4. Chronic A-fib: rate is controlled and continue coreg at 3.125 mg BID -continue coumadin and pharmacy to dose and follow INR 5. CKD stage IV: This is likely from Hypertension and cardiorenal Syndrome II -base line creatinine 1.8-2.2 mg/dl -Discussed with pt and she does not want and form of FASHION MARKETER, manage medically 6. DVT prophylaxis: On warfarin and INR acceptable 7. GI prophylaxix: continue protonix 8. Hypomagnesemia: It is chronic and will start Magnesium oxide 250 mg BID Code Status: DNR/DNI
[2018-09-24] MEDS ORDERED: Spironolactone 25 MG Tab PO SCH (14:00)
[2018-09-24] MEDS ORDERED: Warfarin 2.5 MG Tab PO ONE (14:00)
[2018-09-24] MEDS ORDERED: Polyethylene Glycol 3350 Powder 17 GM Packet PO PRN (15:43)
[2018-09-25] MEDS: Furosemide 100 MG in Sodium Chloride 0.9% 90 ML IV SCH ×5 (00:22→21:21)
[2018-09-25] MEDS: hydrOXYzine HCl 25 MG Tab PO PRN ×2 (07:26→17:16)
[2018-09-25] MEDS: Carboxymethylcellulose Sodium 1% Ophth Gel 0.4 ML UD EYEBOTH SCH ×3 (08:35→20:43)
[2018-09-25] MEDS: Potassium Chloride 10 MEQ Tab.ER PO SCH ×4 (08:41→20:43)
[2018-09-25] MEDS: Carvedilol 3.125 MG Tab PO SCH ×2 (08:42→17:12)
[2018-09-25] MEDS: Metolazone 2.5 MG Tab PO SCH (08:42)
[2018-09-25] MEDS: Spironolactone 25 MG Tab PO SCH (08:43)
[2018-09-25] MEDS: Docusate Sodium 100 MG Cap PO SCH (08:43)
[2018-09-25] MEDS: Acetaminophen/HYDROcodone 325-5 MG Tab PO PRN ×2 (08:49→20:44)
[2018-09-25] MEDS ORDERED: Potassium Chloride 20 MEQ in Premix Bag 1 BAG IV ONE (09:19)
[2018-09-25] MEDS ORDERED: Furosemide 100 MG/10 ML SDV ONE ×2 (11:10→20:28)
--- NOTE | 2018-09-25 12:16 | PCM.PN ---
- General Info Date of Service: 09/25/18 Admission Dx/Problem (Free Text): admitted with: Generalized Anasarca, Volume overload, weight gain of 30 lbs in a one and half week Subjective Update: Pt was seen in room doing well, No increased shortness of breath, No nausea or vomiting, No fever or Chill Functional Status: Reports: Tolerating Diet, Ambulating, Urinating (has kelly catheter) - Review of Systems General: Reports: Weakness, Appetite (good). Denies: Fever HEENT: Denies: Dysphasia, Headaches, Sinus Congestion, Sore Throat Pulmonary: Denies: Shortness of Breath, Cough, Sputum, Wheezing Cardiovascular: Reports: Dyspnea on Exertion, Edema. Denies: Chest Pain, Lightheadedness Gastrointestinal: Denies: Abdominal Pain, Diarrhea, Difficulty Swallowing, Nausea, Vomiting Genitourinary: Denies: Dysuria, Burning, Urgency, Flank Pain Musculoskeletal: Denies: Neck Pain, Shoulder Pain Skin: Denies: Cyanosis, Bruising, Pruritis, Rash Neurological: Reports: Weakness. Denies: Confusion, Tremors Psychiatric: Denies: Confusion, Anxiety - Patient Data Vitals - Most Recent: Last Vital Signs Temp 37.1 C 09/25/18 12:00 Pulse 81 09/25/18 12:00 Resp 20 09/25/18 12:00 BP 115/56 L 09/25/18 12:00 Pulse Ox 96 09/25/18 12:00 Weight - Most Recent: 78.29 kg I&O - Last 24 Hours: Intake & Output 09/24/18 09/25/18 09/25/18 22:59 06:59 14:59 Intake Total 300 315 620 Output Total 1475 350 Balance 300 -1160 270 Lab Results Last 24 Hours: Laboratory Results - last 24 hr 09/24/18 09/25/18 09/25/18 Range/Units 13:50 06:05 06:05 PT 22.9 H (9.0-12.0) SEC INR 2.4 H (0.9-1.2) Sodium 136 (135-145) mmol/L Potassium 3.3 L 3.0 L (3.6-5.0) mmol/L Chloride 93 L (101-111) mmol/L Carbon Dioxide 28.0 (21.0-31.0) mmol/L Anion Gap 18.0 BUN 58 H (7-18) mg/dL Creatinine 2.0 H (0.6-1.3) mg/dL Est Cr Clr Drug Dosing 15.08 mL/min Estimated GFR (MDRD) 23 Glucose 103 (74-105) mg/dL Calcium 9.2 (8.4-10.2) mg/dl Med Orders - Current: Current Medications Acetaminophen (Tylenol) 650 mg PO Q4H PRN PRN Reason: Pain (mild 1-3 )/fever Hydrocodone Bitart/Acetaminophen ([place] 325-5 Mg) 1 tab PO Q6H PRN PRN Reason: Pain Last Admin: 09/25/18 08:49 Dose: 1 tab Artificial Tears (Refresh Celluvisc) 0 each EYEBOTH TID [facility] Last Admin: 09/25/18 08:35 Dose: 1 each Bisacodyl (Dulcolax) 10 mg RECTAL DAILY PRN PRN Reason: Constipation Calcitriol (Rocaltrol) 0.25 mcg PO MoFr@0800 [facility] Carvedilol (Coreg) 3.125 mg PO BIDMEALS [facility] Last Admin: 09/25/18 08:42 Dose: 3.125 mg Docusate Sodium (Colace) 100 mg PO DAILY [facility] Last Admin: 09/25/18 08:43 Dose: 100 mg Hydroxyzine HCl (Atarax) 12.5 mg PO Q8H PRN PRN Reason: Itching Last Admin: 09/25/18 07:26 Dose: 12.5 mg Furosemide 100 mg/ Sodium (Chloride) 100 mls @ 20 mls/hr IV CONTINUOUS [facility] Last Admin: 09/25/18 10:57 Dose: 20 mg/hr, 20 mls/hr Magnesium Oxide (Magnesium Oxide) 250 mg PO BIDM [facility] Last Admin: 09/25/18 08:40 Dose: 250 mg Metolazone (Zaroxolyn) 2.5 mg PO DAILY [facility] Last Admin: 09/25/18 08:42 Dose: 2.5 mg Polyethylene Glycol (Miralax) 17 gm PO DAILY PRN PRN Reason: Constipation Potassium Chloride (Klor-Con 10) 40 meq PO QID [facility] Last Admin: 09/25/18 08:41 Dose: 40 meq Sodium Chloride (Saline Flush) 10 ml FLUSH ASDIRECTED PRN PRN Reason: Keep Vein Open Spironolactone (Aldactone) 25 mg PO DAILY [facility] Last Admin: 09/25/18 08:43 Dose: 25 mg Warfarin Sodium (Pharmacy To Dose - Warfarin) 1 dose .XX ASDIRECTED [facility] Warfarin Sodium (Coumadin) 2.5 mg PO ONETIME ONE Stop: 09/25/18 14:01 Discontinued Medications Carvedilol (Coreg) 6.25 mg PO BIDMEALS [facility] Last Admin: 09/24/18 07:31 Dose: 6.25 mg Furosemide (Lasix) Confirm Administered Dose 100 mg .ROUTE .STK-MED ONE Stop: 09/25/18 11:11 Last Admin: 09/25/18 12:07 Dose: Not Given Hydroxyzine HCl (Atarax) 12.5 mg PO ONETIME ONE Stop: 09/23/18 21:39 Last Admin: 09/23/18 22:08 Dose: 12.5 mg Furosemide 100 mg/ Sodium (Chloride) 100 mls @ 20 mls/hr IV CONTINUOUS [facility] Potassium Chloride 20 meq/ (Premix) 100 mls @ 50 mls/hr IV ONETIME ONE Stop: 09/24/18 08:36 Last Infusion: 09/24/18 10:16 Dose: Infused Potassium Chloride 20 meq/ (Premix) 100 mls @ 50 mls/hr IV ONETIME ONE Stop: 09/24/18 11:32 Last Infusion: 09/24/18 12:48 Dose: Infused Potassium Chloride 20 meq/ (Premix) 100 mls @ 50 mls/hr IV ONETIME ONE Stop: 09/25/18 11:18 Last Admin: 09/25/18 10:33 Dose: 50 mls/hr Non-Formulary Medication (Magnesium Chloride [Magnesium Chloride]) 70 mg PO WITHLUNCH [facility] Last Admin: 09/24/18 16:47 Dose: Not Given Non-Formulary Medication (Propylene Glycol/Peg 400 [Systane Liquid Gel Eye Drops ]) 1 drop EYEBOTH QID [facility] Last Admin: 09/24/18 05:49 Dose: Not Given Potassium Chloride (Klor-Con 10) 40 meq PO TID [facility] Last Admin: 09/24/18 08:40 Dose: 40 meq Sodium Chloride (Saline Flush) 10 ml FLUSH ASDIRECTED PRN PRN Reason: Keep Vein Open Spironolactone (Aldactone) 25 mg PO BIDDIURETIC [facility] Last Admin: 09/24/18 15:21 Dose: 25 mg Warfarin Sodium (Coumadin) 2.5 mg PO BEDTIME [facility] Last Admin: 09/24/18 19:28 Dose: Not Given Warfarin Sodium (Coumadin) 2.5 mg PO ONETIME ONE Stop: 09/24/18 14:01 Last Admin: 09/24/18 15:21 Dose: 2.5 mg - Exam Quality Assessment: Urine Catheter, DVT Prophylaxis. No: Supplemental Oxygen General: Alert, Oriented, Cooperative, No Acute Distress HEENT: Pupils Equal, EOMI, Mucous Membr. Moist/[place] Neck: Supple, No JVD, No Thyromegaly Lungs: Clear to Auscultation, Normal Respiratory Effort Cardiovascular: Irregular Rhythm, Murmurs GI/Abdominal Exam: Normal Bowel Sounds, Soft, Non-Tender, No Organomegaly (Female) Exam: Deferred Back Exam: Normal Inspection, Full Range of Motion Extremities: Normal Inspection, Normal Range of Motion, Pedal Edema (+2-3 and upto B/L thighs) Skin: Warm, Dry, Intact Neurological: No New Focal Deficit Psy/Mental Status: Alert, Normal Affect, Normal Mood - Problem List & Annotations (1) Hypokalemia SNOMED Code(s): 52371845 Code(s): E87.6 - HYPOKALEMIA Status: Acute Current Visit: Yes (2) Anasarca associated with disorder of kidney SNOMED Code(s): 79951003028108 Code(s): N04.9 - NEPHROTIC SYNDROME WITH UNSPECIFIED MORPHOLOGIC CHANGES Status: Acute Priority: High Current Visit: Yes (3) Weight gain Status: Acute Current Visit: Yes (4) CKD (chronic kidney disease) stage 4, GFR 15-29 ml/min SNOMED Code(s): 312094098 Code(s): N18.4 - CHRONIC KIDNEY DISEASE, STAGE 4 (SEVERE) Status: Chronic Priority: Medium Current Visit: Yes (5) Afib SNOMED Code(s): 26678843 Code(s): I48.91 - UNSPECIFIED ATRIAL FIBRILLATION Status: Acute Current Visit: No - Problem List Review Problem List Initiated/Reviewed/Updated: Yes - My Orders Last 24 Hours: My Active Orders 09/24/18 13:00 Potassium Chloride [Klor-Con 10] 40 meq PO QID 09/24/18 15:43 Polyethylene Glycol 3350 [MiraLAX] 17 gm PO DAILY PRN 09/24/18 18:00 Magnesium Oxide 250 mg PO BIDM 09/25/18 09:00 Carvedilol [Coreg] 3.125 mg PO BIDMEALS Docusate Sodium [Colace] 100 mg PO DAILY Spironolactone [Aldactone] 25 mg PO DAILY 09/26/18 06:00 BASIC METABOLIC PANEL,BMP [CHEM] Routine - Plan Plan:: This is a 88 y?O Female resident of [facility] home at [place], with past medical history of 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 Generalized anasarca: This is likely from eating foods with high salt content because the weight gain is sudden with no chest pain or cardiac Issue ( eat lots of ham and salami during the holiday season) and also soup -Discussed with pt to avoid foods with high salt -Will continue lasix at 20 mg/hr drip -Continue Metolazone at 2.5 mg daily -BMP daily and daily weight -Continue I/O recording 2. Hypokalemia: She has severe hypokalemia from diuresis and also metolazone -Will continue oral potassium at 40 meq QID [ was at 40 meq TID] -Will also give potassium chloride 20 meq IV X 1 dose -Recheck Potassium 1 hr after completion of IV potassium -Will continue Aldactone at 25 mg daily 3. Hypertension: BP acceptable and will continue coreg at o 3.125 mg BID [ was at 6.25 mg BID] and continue aldactone at 25 mg daily 4. Chronic A-fib: rate is controlled and continue coreg at 3.125 mg BID -continue coumadin and pharmacy to dose and follow INR 5. CKD stage IV: This is likely from Hypertension and cardiorenal Syndrome II -base line creatinine 1.8-2.2 mg/dl -Discussed with pt and she does not want any form of MACHINE FOLDER, manage medically 6. DVT prophylaxis: On warfarin and INR acceptable 7. GI prophylaxix: continue protonix 8. Hypomagnesemia: It is chronic and will continue Magnesium oxide 250 mg BID Code Status: DNR/DNI
[2018-09-25] MEDS: Acetaminophen 325 MG Tab PO PRN (13:54)
[2018-09-25] MEDS ORDERED: Warfarin 2.5 MG Tab PO ONE (14:00)
[2018-09-26] MEDS: hydrOXYzine HCl 25 MG Tab PO PRN ×3 (01:56→21:43)
[2018-09-26] MEDS ORDERED: Furosemide 20 MG/2 ML VIAL ONE (02:16)
[2018-09-26] MEDS ORDERED: Furosemide 40 MG/4 ML VIAL ONE (02:17)
[2018-09-26] MEDS: Furosemide 100 MG in Sodium Chloride 0.9% 90 ML IV SCH ×4 (02:42→19:19)
[2018-09-26] MEDS: Acetaminophen/HYDROcodone 325-5 MG Tab PO PRN ×3 (03:10→21:44)
[2018-09-26 07:29] LABS: ANION GAP 18.3
[2018-09-26] MEDS: Calcitriol 0.25 MCG Cap PO SCH (08:52)
[2018-09-26] MEDS: Docusate Sodium 100 MG Cap PO SCH (08:52)
[2018-09-26] MEDS: Spironolactone 25 MG Tab PO SCH (08:52)
[2018-09-26] MEDS: Carvedilol 3.125 MG Tab PO SCH ×2 (08:52→17:39)
[2018-09-26] MEDS: Metolazone 2.5 MG Tab PO SCH (08:53)
[2018-09-26] MEDS: Carboxymethylcellulose Sodium 1% Ophth Gel 0.4 ML UD EYEBOTH SCH ×3 (08:53→21:43)
[2018-09-26] MEDS: Potassium Chloride 10 MEQ Tab.ER PO SCH ×4 (08:53→21:43)
[2018-09-26] MEDS ORDERED: Potassium Chloride 20 MEQ in Premix Bag 1 BAG IV ONE (09:36)
--- NOTE | 2018-09-26 11:22 | PCM.PN ---
- General Info Date of Service: 09/26/18 Admission Dx/Problem (Free Text): admitted with: Generalized Anasarca, Volume overload, weight gain of 30 lbs in a one and half week Subjective Update: Pt was seen in room doing well, No increased shortness of breath, No nausea or vomiting, No fever or Chill Functional Status: Reports: Pain Controlled, Tolerating Diet, Urinating - Review of Systems General: Reports: Weakness, Appetite (good). Denies: Fever HEENT: Denies: Headaches, Sinus Congestion, Visual Changes Pulmonary: Denies: Shortness of Breath, Cough, Sputum, Wheezing Cardiovascular: Reports: Edema. Denies: Chest Pain, Dyspnea on Exertion Gastrointestinal: Denies: Abdominal Pain, Diarrhea, Nausea, Vomiting Genitourinary: Denies: Dysuria, Frequency, Burning Musculoskeletal: Denies: Neck Pain, Leg Pain, Joint Swelling Skin: Denies: Cyanosis, Jaundice, Bruising, Rash Neurological: Denies: Confusion, Tingling, Tremors Psychiatric: Reports: No Symptoms - Patient Data Vitals - Most Recent: Last Vital Signs Temp 36.6 C 09/26/18 08:00 Pulse 70 09/26/18 08:52 Resp 18 09/26/18 08:00 BP 118/55 L 09/26/18 08:52 Pulse Ox 95 09/26/18 08:00 Weight - Most Recent: 77.156 kg I&O - Last 24 Hours: Intake & Output 09/25/18 09/26/18 09/26/18 22:59 06:59 14:59 Intake Total 790 300 Output Total 1600 1150 Balance -810 -850 Lab Results Last 24 Hours: Laboratory Results - last 24 hr 09/25/18 09/26/18 09/26/18 Range/Units 17:50 06:55 06:55 PT 22.7 H (9.0-12.0) SEC INR 2.3 H (0.9-1.2) Sodium 137 (135-145) mmol/L Potassium 4.1 3.3 L (3.6-5.0) mmol/L Chloride 91 L (101-111) mmol/L Carbon Dioxide 31.0 (21.0-31.0) mmol/L Anion Gap 18.3 BUN 53 H (7-18) mg/dL Creatinine 1.8 H (0.6-1.3) mg/dL Est Cr Clr Drug Dosing 16.76 mL/min Estimated GFR (MDRD) 26 Glucose 98 (74-105) mg/dL Calcium 9.3 (8.4-10.2) mg/dl Med Orders - Current: Current Medications Acetaminophen (Tylenol) 650 mg PO Q4H PRN PRN Reason: Pain (mild 1-3 )/fever Last Admin: 09/25/18 13:54 Dose: 650 mg Hydrocodone Bitart/Acetaminophen ([place] 325-5 Mg) 1 tab PO Q6H PRN PRN Reason: Pain Last Admin: 09/26/18 03:10 Dose: 1 tab Artificial Tears (Refresh Celluvisc) 0 each EYEBOTH TID [facility] Last Admin: 09/26/18 08:53 Dose: 1 each Bisacodyl (Dulcolax) 10 mg RECTAL DAILY PRN PRN Reason: Constipation Calcitriol (Rocaltrol) 0.25 mcg PO MoFr@0800 [facility] Last Admin: 09/26/18 08:52 Dose: 0.25 mcg Carvedilol (Coreg) 3.125 mg PO BIDMEALS [facility] Last Admin: 09/26/18 08:52 Dose: 3.125 mg Docusate Sodium (Colace) 100 mg PO DAILY [facility] Last Admin: 09/26/18 08:52 Dose: 100 mg Hydroxyzine HCl (Atarax) 12.5 mg PO Q8H PRN PRN Reason: Itching Last Admin: 09/26/18 01:56 Dose: 12.5 mg Furosemide 100 mg/ Sodium (Chloride) 100 mls @ 20 mls/hr IV CONTINUOUS [facility] Last Admin: 09/26/18 09:31 Dose: 20 mg/hr, 20 mls/hr Potassium Chloride 20 meq/ (Premix) 100 mls @ 50 mls/hr IV ONETIME ONE Stop: 09/26/18 11:35 Last Admin: 09/26/18 09:59 Dose: 50 mls/hr Potassium Chloride 10 meq/ (Premix) 100 mls @ 100 mls/hr IV ONETIME ONE Stop: 09/26/18 12:59 Magnesium Oxide (Magnesium Oxide) 250 mg PO BIDM [facility] Last Admin: 09/26/18 08:52 Dose: 250 mg Metolazone (Zaroxolyn) 2.5 mg PO DAILY [facility] Last Admin: 12/31/18 08:53 Dose: 2.5 mg Polyethylene Glycol (Miralax) 17 gm PO DAILY PRN PRN Reason: Constipation Potassium Chloride (Klor-Con 10) 40 meq PO QID [facility] Last Admin: 09/26/18 08:53 Dose: 40 meq Sodium Chloride (Saline Flush) 10 ml FLUSH ASDIRECTED PRN PRN Reason: Keep Vein Open Spironolactone (Aldactone) 25 mg PO DAILY [facility] Last Admin: 09/26/18 08:52 Dose: 25 mg Warfarin Sodium (Pharmacy To Dose - Warfarin) 1 dose .XX ASDIRECTED [facility] Warfarin Sodium (Coumadin) 2.5 mg PO ONETIME ONE Stop: 09/26/18 14:01 Discontinued Medications Carvedilol (Coreg) 6.25 mg PO BIDMEALS [facility] Last Admin: 09/24/18 07:31 Dose: 6.25 mg Furosemide (Lasix) Confirm Administered Dose 100 mg .ROUTE .STK-MED ONE Stop: 09/25/18 11:11 Last Admin: 09/25/18 12:07 Dose: Not Given Furosemide (Lasix) Confirm Administered Dose 100 mg .ROUTE .STK-MED ONE Stop: 09/25/18 20:29 Last Admin: 09/25/18 21:24 Dose: Not Given Furosemide (Lasix) Confirm Administered Dose 20 mg .ROUTE .STK-MED ONE Stop: 09/26/18 02:17 Last Admin: 09/26/18 03:08 Dose: Not Given Furosemide (Lasix) Confirm Administered Dose 80 mg .ROUTE .STK-MED ONE Stop: 09/26/18 02:18 Last Admin: 09/26/18 03:08 Dose: Not Given Hydroxyzine HCl (Atarax) 12.5 mg PO ONETIME ONE Stop: 09/23/18 21:39 Last Admin: 09/23/18 22:08 Dose: 12.5 mg Furosemide 100 mg/ Sodium (Chloride) 100 mls @ 20 mls/hr IV CONTINUOUS [facility] Potassium Chloride 20 meq/ (Premix) 100 mls @ 50 mls/hr IV ONETIME ONE Stop: 09/24/18 08:36 Last Infusion: 09/24/18 10:16 Dose: Infused Potassium Chloride 20 meq/ (Premix) 100 mls @ 50 mls/hr IV ONETIME ONE Stop: 09/24/18 11:32 Last Infusion: 09/24/18 12:48 Dose: Infused Potassium Chloride 20 meq/ (Premix) 100 mls @ 50 mls/hr IV ONETIME ONE Stop: 09/25/18 11:18 Last Infusion: 09/25/18 12:48 Dose: Infused Non-Formulary Medication (Magnesium Chloride [Magnesium Chloride]) 70 mg PO WITHLUNCH [facility] Last Admin: 09/24/18 16:47 Dose: Not Given Non-Formulary Medication (Propylene Glycol/Peg 400 [Systane Liquid Gel Eye Drops ]) 1 drop EYEBOTH QID [facility] Last Admin: 09/24/18 05:49 Dose: Not Given Potassium Chloride (Klor-Con 10) 40 meq PO TID [facility] Last Admin: 09/24/18 08:40 Dose: 40 meq Sodium Chloride (Saline Flush) 10 ml FLUSH ASDIRECTED PRN PRN Reason: Keep Vein Open Spironolactone (Aldactone) 25 mg PO BIDDIURETIC [facility] Last Admin: 09/24/18 15:21 Dose: 25 mg Warfarin Sodium (Coumadin) 2.5 mg PO BEDTIME [facility] Last Admin: 09/24/18 19:28 Dose: Not Given Warfarin Sodium (Coumadin) 2.5 mg PO ONETIME ONE Stop: 09/24/18 14:01 Last Admin: 09/24/18 15:21 Dose: 2.5 mg Warfarin Sodium (Coumadin) 2.5 mg PO ONETIME ONE Stop: 09/25/18 14:01 Last Admin: 09/25/18 13:54 Dose: 2.5 mg - Exam Quality Assessment: Urine Catheter, DVT Prophylaxis. No: Supplemental Oxygen General: Alert, Oriented, Cooperative, No Acute Distress HEENT: Pupils Equal, Pupils Reactive, Mucous Membr. Moist/[place]: Supple, No JVD, No Thyromegaly Lungs: Clear to Auscultation, Normal Respiratory Effort. No: Wheezing Cardiovascular: Regular Rate, Regular Rhythm, Murmurs GI/Abdominal Exam: Normal Bowel Sounds, Soft, Non-Tender, No Distention. No: Guarding, Rigid, Rebound (Female) Exam: Deferred Back Exam: Normal Inspection Extremities: Normal Inspection, Pedal Edema (+2-3 up to B/L Thigh) Skin: Warm, Dry, Intact Neurological: No New Focal Deficit Psy/Mental Status: Alert, Normal Affect, Normal Mood - Problem List & Annotations (1) Hypokalemia SNOMED Code(s): 32207545 Code(s): E87.6 - HYPOKALEMIA Status: Acute Current Visit: Yes (2) Anasarca associated with disorder of kidney SNOMED Code(s): 39359085225188 Code(s): N04.9 - NEPHROTIC SYNDROME WITH UNSPECIFIED MORPHOLOGIC CHANGES Status: Acute Priority: High Current Visit: Yes (3) Weight gain Status: Acute Current Visit: Yes (4) CKD (chronic kidney disease) stage 4, GFR 15-29 ml/min SNOMED Code(s): 405474172 Code(s): N18.4 - CHRONIC KIDNEY DISEASE, STAGE 4 (SEVERE) Status: Chronic Priority: Medium Current Visit: Yes (5) Afib SNOMED Code(s): 25902607 Code(s): I48.91 - UNSPECIFIED ATRIAL FIBRILLATION Status: Acute Current Visit: No - Problem List Review Problem List Initiated/Reviewed/Updated: Yes - My Orders Last 24 Hours: My Active Orders 09/26/18 09:36 Potassium Chloride [KCL 20 MEQ in Water 100 ML] 20 meq Premix Bag 1 bag IV ONETIME 09/26/18 12:00 Potassium Chloride [KCl 10 MEQ in Water 100 ML] 10 meq Premix Bag 1 bag IV ONETIME 09/26/18 14:00 Warfarin [Coumadin] 2.5 mg PO ONETIME ONE - Plan Plan:: This is a 88 y?O Female resident of [facility] [place], with past medical history of 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 Generalized anasarca: This is likely from eating foods with high salt content because the weight gain is sudden with no chest pain or cardiac Issue ( eat lots of ham and salami during the holiday season) and also soup -Discussed with pt to avoid foods with high salt -Will continue lasix at 20 mg/hr drip -Continue Metolazone at 2.5 mg daily -BMP daily and daily weight -Continue I/O recording 2. Hypokalemia: She has severe hypokalemia from diuresis and also metolazone -Will continue oral potassium at 40 meq QID [ was at 40 meq TID] -Will also give potassium chloride 30 meq IV X 1 dose -Recheck Potassium 1 hr after completion of IV potassium -Will continue Aldactone at 25 mg daily 3. Hypertension: BP acceptable and will continue coreg at o 3.125 mg BID [ was at 6.25 mg BID] and continue aldactone at 25 mg daily 4. Chronic A-fib: rate is controlled and continue coreg at 3.125 mg BID -continue coumadin and pharmacy to dose and follow INR 5. 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 DVT prophylaxis: On warfarin and INR acceptable 7. GI prophylaxix: continue protonix 8. Hypomagnesemia: It is chronic and will continue Magnesium oxide 250 mg BID Code Status: DNR/DNI
[2018-09-26] MEDS ORDERED: Potassium Chloride 10 MEQ in Premix Bag 1 BAG IV ONE (12:00)
[2018-09-26] MEDS ORDERED: Warfarin 2.5 MG Tab PO ONE (14:00)
[2018-09-27] MEDS: Furosemide 100 MG in Sodium Chloride 0.9% 90 ML IV SCH ×2 (00:19→05:16)
[2018-09-27] MEDS: Acetaminophen/HYDROcodone 325-5 MG Tab PO PRN ×2 (05:55→22:01)
[2018-09-27] MEDS: hydrOXYzine HCl 25 MG Tab PO PRN ×2 (05:57→17:53)
[2018-09-27 07:00] LABS: ANION GAP 17.7
[2018-09-27] MEDS: Docusate Sodium 100 MG Cap PO SCH (09:21)
[2018-09-27] MEDS: Potassium Chloride 10 MEQ Tab.ER PO SCH ×4 (09:21→21:05)
[2018-09-27] MEDS: Spironolactone 25 MG Tab PO SCH (09:21)
[2018-09-27] MEDS: Metolazone 2.5 MG Tab PO SCH (09:22)
[2018-09-27] MEDS: Carvedilol 3.125 MG Tab PO SCH ×2 (09:22→17:54)
[2018-09-27] MEDS: Carboxymethylcellulose Sodium 1% Ophth Gel 0.4 ML UD EYEBOTH SCH ×3 (09:25→21:06)
[2018-09-27] MEDS ORDERED: Bumetanide 1 MG/4 ML MDV IVPUSH ONE (10:26)
--- NOTE | 2018-09-27 10:42 | PCM.PN ---
- General Info Date of Service: 09/27/18 Admission Dx/Problem (Free Text): admitted with: Generalized Anasarca, Volume overload, weight gain of 30 lbs in a one and half week Subjective Update: Pt was seen in room doing well, No increased shortness of breath, No nausea or vomiting, No fever or Chill and has lost >13 lbs Functional Status: Reports: Pain Controlled, Tolerating Diet, Ambulating, Urinating - Review of Systems General: Reports: Appetite (good). Denies: Fever, Chills HEENT: Denies: Headaches, Sinus Congestion, Sore Throat, Visual Changes Pulmonary: Denies: Shortness of Breath, Cough, Sputum, Wheezing Cardiovascular: Reports: Edema. Denies: Chest Pain, Dyspnea on Exertion Gastrointestinal: Denies: Abdominal Pain, Diarrhea, Nausea, Vomiting Genitourinary: Denies: Dysuria, Frequency, Burning, Urgency Musculoskeletal: Denies: Neck Pain, Hand Pain, Leg Pain, Foot Pain Skin: Denies: Bruising, Pruritis, Rash Neurological: Denies: Confusion, Tingling, Tremors Psychiatric: Denies: Confusion, Anxiety - Patient Data Vitals - Most Recent: Last Vital Signs Temp 37.8 C 09/27/18 08:00 Pulse 76 09/27/18 09:22 Resp 16 09/27/18 08:00 BP 112/49 L 09/27/18 09:22 Pulse Ox 93 L 09/27/18 08:00 Weight - Most Recent: 76.294 kg I&O - Last 24 Hours: Intake & Output 09/26/18 09/27/18 09/27/18 22:59 06:59 14:59 Intake Total 650 600 Output Total 1900 1200 Balance -1250 -600 Lab Results Last 24 Hours: Laboratory Results - last 24 hr 09/26/18 09/27/18 09/27/18 Range/Units 16:00 06:32 06:32 PT 20.6 H (9.0-12.0) SEC INR 2.1 H (0.9-1.2) Sodium 134 L (135-145) mmol/L Potassium 4.7 3.7 (3.6-5.0) mmol/L Chloride 90 L (101-111) mmol/L Carbon Dioxide 30.0 (21.0-31.0) mmol/L Anion Gap 17.7 BUN 51 H (7-18) mg/dL Creatinine 1.8 H (0.6-1.3) mg/dL Est Cr Clr Drug Dosing 16.76 mL/min Estimated GFR (MDRD) 26 Glucose 103 (74-105) mg/dL Calcium 9.4 (8.4-10.2) mg/dl Med Orders - Current: Current Medications Acetaminophen (Tylenol) 650 mg PO Q4H PRN PRN Reason: Pain (mild 1-3 )/fever Last Admin: 09/25/18 13:54 Dose: 650 mg Hydrocodone Bitart/Acetaminophen ([place] 325-5 Mg) 1 tab PO Q6H PRN PRN Reason: Pain Last Admin: 09/27/18 05:55 Dose: 1 tab Artificial Tears (Refresh Celluvisc) 0 each EYEBOTH TID [facility] Last Admin: 09/27/18 09:25 Dose: 1 each Bisacodyl (Dulcolax) 10 mg RECTAL DAILY PRN PRN Reason: Constipation Bumetanide (Bumex) 2 mg IVPUSH BID [facility] Calcitriol (Rocaltrol) 0.25 mcg PO MoFr@0800 [facility] Last Admin: 09/26/18 08:52 Dose: 0.25 mcg Carvedilol (Coreg) 3.125 mg PO BIDMEALS [facility] Last Admin: 09/27/18 09:22 Dose: 3.125 mg Docusate Sodium (Colace) 100 mg PO DAILY [facility] Last Admin: 09/27/18 09:21 Dose: 100 mg Hydroxyzine HCl (Atarax) 12.5 mg PO Q8H PRN PRN Reason: Itching Last Admin: 09/27/18 05:57 Dose: 12.5 mg Magnesium Oxide (Magnesium Oxide) 250 mg PO BIDM [facility] Last Admin: 09/27/18 09:22 Dose: 250 mg Metolazone (Zaroxolyn) 2.5 mg PO DAILY [facility] Last Admin: 09/27/18 09:22 Dose: 2.5 mg Polyethylene Glycol (Miralax) 17 gm PO DAILY PRN PRN Reason: Constipation Potassium Chloride (Klor-Con 10) 40 meq PO QID [facility] Last Admin: 09/27/18 09:21 Dose: 40 meq Sodium Chloride (Saline Flush) 10 ml FLUSH ASDIRECTED PRN PRN Reason: Keep Vein Open Spironolactone (Aldactone) 25 mg PO DAILY [facility] Last Admin: 09/27/18 09:21 Dose: 25 mg Warfarin Sodium (Pharmacy To Dose - Warfarin) 1 dose .XX ASDIRECTED [facility] Warfarin Sodium (Coumadin) 2.5 mg PO ONETIME ONE Stop: 09/27/18 14:01 Discontinued Medications Bumetanide (Bumex) 2 mg IVPUSH BID ONE Stop: 09/27/18 10:27 Carvedilol (Coreg) 6.25 mg PO BIDMEALS [facility] Last Admin: 09/24/18 07:31 Dose: 6.25 mg Furosemide (Lasix) Confirm Administered Dose 100 mg .ROUTE .STK-MED ONE Stop: 09/25/18 11:11 Last Admin: 09/25/18 12:07 Dose: Not Given Furosemide (Lasix) Confirm Administered Dose 100 mg .ROUTE .STK-MED ONE Stop: 09/25/18 20:29 Last Admin: 09/25/18 21:24 Dose: Not Given Furosemide (Lasix) Confirm Administered Dose 20 mg .ROUTE .STK-MED ONE Stop: 09/26/18 02:17 Last Admin: 09/26/18 03:08 Dose: Not Given Furosemide (Lasix) Confirm Administered Dose 80 mg .ROUTE .STK-MED ONE Stop: 09/26/18 02:18 Last Admin: 09/26/18 03:08 Dose: Not Given Hydroxyzine HCl (Atarax) 12.5 mg PO ONETIME ONE Stop: 09/23/18 21:39 Last Admin: 09/23/18 22:08 Dose: 12.5 mg Furosemide 100 mg/ Sodium (Chloride) 100 mls @ 20 mls/hr IV CONTINUOUS [facility] Furosemide 100 mg/ Sodium (Chloride) 100 mls @ 20 mls/hr IV CONTINUOUS [facility] Last Admin: 09/27/18 05:16 Dose: 20 mg/hr, 20 mls/hr Potassium Chloride 20 meq/ (Premix) 100 mls @ 50 mls/hr IV ONETIME ONE Stop: 09/24/18 08:36 Last Infusion: 09/24/18 10:16 Dose: Infused Potassium Chloride 20 meq/ (Premix) 100 mls @ 50 mls/hr IV ONETIME ONE Stop: 09/24/18 11:32 Last Infusion: 09/24/18 12:48 Dose: Infused Potassium Chloride 20 meq/ (Premix) 100 mls @ 50 mls/hr IV ONETIME ONE Stop: 09/25/18 11:18 Last Infusion: 09/25/18 12:48 Dose: Infused Potassium Chloride 20 meq/ (Premix) 100 mls @ 50 mls/hr IV ONETIME ONE Stop: 09/26/18 11:35 Last Admin: 09/26/18 09:59 Dose: 50 mls/hr Potassium Chloride 10 meq/ (Premix) 100 mls @ 100 mls/hr IV ONETIME ONE Stop: 09/26/18 12:59 Last Admin: 09/26/18 13:00 Dose: 100 mls/hr Non-Formulary Medication (Magnesium Chloride [Magnesium Chloride]) 70 mg PO WITHLUNCH [facility] Last Admin: 09/24/18 16:47 Dose: Not Given Non-Formulary Medication (Propylene Glycol/Peg 400 [Systane Liquid Gel Eye Drops ]) 1 drop EYEBOTH QID [facility] Last Admin: 09/24/18 05:49 Dose: Not Given Potassium Chloride (Klor-Con 10) 40 meq PO TID [facility] Last Admin: 09/24/18 08:40 Dose: 40 meq Sodium Chloride (Saline Flush) 10 ml FLUSH ASDIRECTED PRN PRN Reason: Keep Vein Open Spironolactone (Aldactone) 25 mg PO BIDDIURETIC [facility] Last Admin: 09/24/18 15:21 Dose: 25 mg Warfarin Sodium (Coumadin) 2.5 mg PO BEDTIME [facility] Last Admin: 09/24/18 19:28 Dose: Not Given Warfarin Sodium (Coumadin) 2.5 mg PO ONETIME ONE Stop: 09/24/18 14:01 Last Admin: 09/24/18 15:21 Dose: 2.5 mg Warfarin Sodium (Coumadin) 2.5 mg PO ONETIME ONE Stop: 09/25/18 14:01 Last Admin: 09/25/18 13:54 Dose: 2.5 mg Warfarin Sodium (Coumadin) 2.5 mg PO ONETIME ONE Stop: 09/26/18 14:01 Last Admin: 09/26/18 13:00 Dose: 2.5 mg - Exam Quality Assessment: Urine Catheter, DVT Prophylaxis. No: Supplemental Oxygen General: Alert, Oriented, Cooperative, No Acute Distress HEENT: Pupils Equal, EOMI, Mucous Membr. Moist/[place] Neck: Supple, No JVD, No Thyromegaly Lungs: Clear to Auscultation, Normal Respiratory Effort Cardiovascular: Regular Rate, Regular Rhythm, Murmurs GI/Abdominal Exam: Normal Bowel Sounds, Soft, Non-Tender, No Distention (Female) Exam: Deferred Back Exam: Normal Inspection Extremities: Normal Inspection, Pedal Edema (+1-2) Skin: Warm, Dry, Intact Neurological: No New Focal Deficit Psy/Mental Status: Alert, Normal Affect, Normal Mood - Problem List & Annotations (1) Hypokalemia SNOMED Code(s): 97392551 Code(s): E87.6 - HYPOKALEMIA Status: Acute Current Visit: Yes (2) Anasarca associated with disorder of kidney SNOMED Code(s): 27973747797615 Code(s): N04.9 - NEPHROTIC SYNDROME WITH UNSPECIFIED MORPHOLOGIC CHANGES Status: Acute Priority: High Current Visit: Yes (3) Weight gain Status: Acute Current Visit: Yes (4) CKD (chronic kidney disease) stage 4, GFR 15-29 ml/min SNOMED Code(s): 734520290 Code(s): N18.4 - CHRONIC KIDNEY DISEASE, STAGE 4 (SEVERE) Status: Chronic Priority: Medium Current Visit: Yes (5) Afib SNOMED Code(s): 29922861 Code(s): I48.91 - UNSPECIFIED ATRIAL FIBRILLATION Status: Acute Current Visit: No - Problem List Review Problem List Initiated/Reviewed/Updated: Yes - My Orders Last 24 Hours: My Active Orders 09/27/18 14:00 Warfarin [Coumadin] 2.5 mg PO ONETIME ONE 09/27/18 21:00 Bumetanide [Bumex] 2 mg IVPUSH BID 09/28/18 06:00 BASIC METABOLIC PANEL,BMP [CHEM] Routine - Plan Plan:: This is a 88 y?O Female resident of 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 Generalized anasarca: This is likely from eating foods with high salt content because the weight gain is sudden with no chest pain or cardiac Issue ( eat lots of ham and salami during the holiday season) and also soup -Discussed with pt to avoid foods with high salt -Will stop lasix drip [ was at 20 mg/hr ] -Will start her on Bumex 2 mg IV 2 times a day -Continue Metolazone at 2.5 mg daily -BMP daily and daily weight -Continue I/O recording 2. Hypokalemia: She has severe hypokalemia from diuresis and also metolazone -Will continue oral potassium at 40 meq QID [ was at 40 meq TID] -Will continue Aldactone at 25 mg daily -BMP in AM 3. Hypertension: BP acceptable and will continue coreg at o 3.125 mg BID [ was at 6.25 mg BID] and aldactone at 25 mg daily 4. Chronic A-fib: rate is controlled and continue coreg at 3.125 mg BID -continue coumadin and pharmacy to dose and follow INR 5. 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 DVT prophylaxis: On warfarin and INR acceptable 7. GI prophylaxix: continue protonix 8. Hypomagnesemia: It is chronic and will continue Magnesium oxide 250 mg BID 9. Disposition: She will likely go to a ID and Likely to [place] and social service is in touch with her daughter who is making the plan Code Status: DNR/DNI
[2018-09-27] MEDS: Sodium Chloride 0.9% 10 ML Syringe FLUSH PRN ×3 (10:47→21:24)
[2018-09-27] MEDS ORDERED: Warfarin 2.5 MG Tab PO ONE (14:00)
[2018-09-27] MEDS: Bumetanide 1 MG/4 ML MDV IVPUSH SCH (21:12)
[2018-09-28] MEDS: hydrOXYzine HCl 25 MG Tab PO PRN (01:44)
[2018-09-28 06:46] LABS: ANION GAP 20.1
[2018-09-28] MEDS: Carvedilol 3.125 MG Tab PO SCH ×2 (08:30→17:16)
[2018-09-28] MEDS: Carboxymethylcellulose Sodium 1% Ophth Gel 0.4 ML UD EYEBOTH SCH ×3 (08:30→20:54)
[2018-09-28] MEDS: Docusate Sodium 100 MG Cap PO SCH (08:30)
[2018-09-28] MEDS: Potassium Chloride 10 MEQ Tab.ER PO SCH ×4 (08:30→20:48)
[2018-09-28] MEDS: Bumetanide 1 MG/4 ML MDV IVPUSH SCH ×2 (08:31→20:48)
[2018-09-28] MEDS: Spironolactone 25 MG Tab PO SCH (08:31)
[2018-09-28] MEDS: Metolazone 2.5 MG Tab PO SCH (08:31)
[2018-09-28] MEDS ORDERED: Warfarin 2.5 MG Tab PO ONE (14:00)
[2018-09-28] MEDS ORDERED: Zolpidem 5 MG Tab PO PRN (18:49)
[2018-09-28] MEDS: Acetaminophen 325 MG Tab PO PRN (21:00)
[2018-09-29] MEDS: Metolazone 2.5 MG Tab PO SCH (09:26)
[2018-09-29] MEDS: Acetaminophen/HYDROcodone 325-5 MG Tab PO PRN ×2 (09:26→20:52)
[2018-09-29] MEDS: Potassium Chloride 10 MEQ Tab.ER PO SCH ×4 (09:26→20:43)
[2018-09-29] MEDS: Carvedilol 3.125 MG Tab PO SCH ×2 (09:27→17:51)
[2018-09-29] MEDS: Spironolactone 25 MG Tab PO SCH (09:27)
[2018-09-29] MEDS: Docusate Sodium 100 MG Cap PO SCH (09:27)
[2018-09-29] MEDS: Carboxymethylcellulose Sodium 1% Ophth Gel 0.4 ML UD EYEBOTH SCH ×3 (09:29→20:43)
[2018-09-29] MEDS: Bumetanide 1 MG/4 ML MDV IVPUSH SCH ×2 (09:41→20:47)
[2018-09-29] MEDS: Sodium Chloride 0.9% 10 ML Syringe FLUSH PRN ×2 (09:42→20:47)
[2018-09-29] MEDS ORDERED: Warfarin 2.5 MG Tab PO ONE (15:15)
--- NOTE | 2018-09-29 22:34 | PCM.PN ---
- General Info Date of Service: 09/29/18 Subjective Update: Patient seen on subsequent hospital stay. no new concerns from nursing staff. patient still confused. no episodes of agitations.. tolerating meals. - Patient Data Vitals - Most Recent: Last Vital Signs Temp 98.8 F 09/29/18 15:51 Pulse 78 09/29/18 17:51 Resp 20 09/29/18 15:51 BP 108/54 L 09/29/18 17:51 Pulse Ox 92 L 09/29/18 15:51 Weight - Most Recent: 160 lb 1 oz I&O - Last 24 Hours: Intake & Output 09/29/18 09/29/18 09/29/18 06:59 14:59 22:59 Intake Total 100 270 775 Output Total 950 1450 900 Balance -850 -1180 -125 Lab Results Last 24 Hours: Laboratory Results - last 24 hr 09/29/18 09/29/18 Range/Units 06:05 17:28 Hgb 8.5 L (12.0-16.0) g/dL Hct 28.7 L (37.0-47.0) % PT 21.2 H (9.0-12.0) SEC INR 2.2 H (0.9-1.2) Med Orders - Current: Current Medications Acetaminophen (Tylenol) 650 mg PO Q4H PRN PRN Reason: Pain (mild 1-3 )/fever Last Admin: 09/28/18 21:00 Dose: 650 mg Hydrocodone Bitart/Acetaminophen ([place] 325-5 Mg) 1 tab PO Q6H PRN PRN Reason: Pain Last Admin: 09/29/18 20:52 Dose: 1 tab Artificial Tears (Refresh Celluvisc) 0 each EYEBOTH TID [facility] Last Admin: 09/29/18 20:43 Dose: 1 each Bisacodyl (Dulcolax) 10 mg RECTAL DAILY PRN PRN Reason: Constipation Bumetanide (Bumex) 2 mg IVPUSH BID [facility] Last Admin: 09/29/18 20:47 Dose: 2 mg Calcitriol (Rocaltrol) 0.25 mcg PO MoFr@0800 [facility] Last Admin: 09/26/18 08:52 Dose: 0.25 mcg Carvedilol (Coreg) 3.125 mg PO BIDMEALS [facility] Last Admin: 09/29/18 17:51 Dose: 3.125 mg Docusate Sodium (Colace) 100 mg PO DAILY [facility] Last Admin: 09/29/18 09:27 Dose: 100 mg Hydroxyzine HCl (Atarax) 12.5 mg PO Q8H PRN PRN Reason: Itching Last Admin: 09/28/18 01:44 Dose: 12.5 mg Magnesium Oxide (Magnesium Oxide) 250 mg PO BIDM [facility] Last Admin: 09/29/18 17:50 Dose: 250 mg Metolazone (Zaroxolyn) 2.5 mg PO DAILY [facility] Last Admin: 09/29/18 09:26 Dose: 2.5 mg Polyethylene Glycol (Miralax) 17 gm PO DAILY PRN PRN Reason: Constipation Potassium Chloride (Klor-Con 10) 40 meq PO QID [facility] Last Admin: 09/29/18 20:43 Dose: 40 meq Sodium Chloride (Saline Flush) 10 ml FLUSH ASDIRECTED PRN PRN Reason: Keep Vein Open Last Admin: 09/29/18 20:47 Dose: 10 ml Spironolactone (Aldactone) 25 mg PO DAILY [facility] Last Admin: 09/29/18 09:27 Dose: 25 mg Warfarin Sodium (Pharmacy To Dose - Warfarin) 1 dose .XX ASDIRECTED [facility] Zolpidem Tartrate (Ambien) 5 mg PO BEDTIME PRN PRN Reason: Insomnia Last Admin: 09/28/18 21:01 Dose: 5 mg Discontinued Medications Bumetanide (Bumex) 2 mg IVPUSH BID ONE Stop: 09/27/18 10:27 Last Admin: 09/27/18 11:42 Dose: Not Given Carvedilol (Coreg) 6.25 mg PO BIDMEALS [facility] Last Admin: 09/24/18 07:31 Dose: 6.25 mg Furosemide (Lasix) Confirm Administered Dose 100 mg .ROUTE .STK-MED ONE Stop: 09/25/18 11:11 Last Admin: 09/25/18 12:07 Dose: Not Given Furosemide (Lasix) Confirm Administered Dose 100 mg .ROUTE .STK-MED ONE Stop: 09/25/18 20:29 Last Admin: 09/25/18 21:24 Dose: Not Given Furosemide (Lasix) Confirm Administered Dose 20 mg .ROUTE .STK-MED ONE Stop: 09/26/18 02:17 Last Admin: 09/26/18 03:08 Dose: Not Given Furosemide (Lasix) Confirm Administered Dose 80 mg .ROUTE .STK-MED ONE Stop: 09/26/18 02:18 Last Admin: 09/26/18 03:08 Dose: Not Given Hydroxyzine HCl (Atarax) 12.5 mg PO ONETIME ONE Stop: 09/23/18 21:39 Last Admin: 09/23/18 22:08 Dose: 12.5 mg Furosemide 100 mg/ Sodium (Chloride) 100 mls @ 20 mls/hr IV CONTINUOUS HINA Furosemide 100 mg/ Sodium (Chloride) 100 mls @ 20 mls/hr IV CONTINUOUS HINA Last Infusion: 09/27/18 10:46 Dose: Infused Potassium Chloride 20 meq/ (Premix) 100 mls @ 50 mls/hr IV ONETIME ONE Stop: 09/24/18 08:36 Last Infusion: 09/24/18 10:16 Dose: Infused Potassium Chloride 20 meq/ (Premix) 100 mls @ 50 mls/hr IV ONETIME ONE Stop: 09/24/18 11:32 Last Infusion: 09/24/18 12:48 Dose: Infused Potassium Chloride 20 meq/ (Premix) 100 mls @ 50 mls/hr IV ONETIME ONE Stop: 09/25/18 11:18 Last Infusion: 09/25/18 12:48 Dose: Infused Potassium Chloride 20 meq/ (Premix) 100 mls @ 50 mls/hr IV ONETIME ONE Stop: 09/26/18 11:35 Last Admin: 09/26/18 09:59 Dose: 50 mls/hr Potassium Chloride 10 meq/ (Premix) 100 mls @ 100 mls/hr IV ONETIME ONE Stop: 09/26/18 12:59 Last Admin: 09/26/18 13:00 Dose: 100 mls/hr Non-Formulary Medication (Magnesium Chloride [Magnesium Chloride]) 70 mg PO WITHLUNCH [facility] Last Admin: 09/24/18 16:47 Dose: Not Given Non-Formulary Medication (Propylene Glycol/Peg 400 [Systane Liquid Gel Eye Drops ]) 1 drop EYEBOTH QID [facility] Last Admin: 09/24/18 05:49 Dose: Not Given Potassium Chloride (Klor-Con 10) 40 meq PO TID [facility] Last Admin: 09/24/18 08:40 Dose: 40 meq Sodium Chloride (Saline Flush) 10 ml FLUSH ASDIRECTED PRN PRN Reason: Keep Vein Open Spironolactone (Aldactone) 25 mg PO BIDDIURETIC [facility] Last Admin: 09/24/18 15:21 Dose: 25 mg Warfarin Sodium (Coumadin) 2.5 mg PO BEDTIME [facility] Last Admin: 09/24/18 19:28 Dose: Not Given Warfarin Sodium (Coumadin) 2.5 mg PO ONETIME ONE Stop: 09/24/18 14:01 Last Admin: 09/24/18 15:21 Dose: 2.5 mg Warfarin Sodium (Coumadin) 2.5 mg PO ONETIME ONE Stop: 09/25/18 14:01 Last Admin: 09/25/18 13:54 Dose: 2.5 mg Warfarin Sodium (Coumadin) 2.5 mg PO ONETIME ONE Stop: 09/26/18 14:01 Last Admin: 09/26/18 13:00 Dose: 2.5 mg Warfarin Sodium (Coumadin) 2.5 mg PO ONETIME ONE Stop: 09/27/18 14:01 Last Admin: 09/27/18 13:56 Dose: 2.5 mg Warfarin Sodium (Coumadin) 2.5 mg PO ONETIME ONE Stop: 09/28/18 14:01 Last Admin: 09/28/18 13:38 Dose: 2.5 mg Warfarin Sodium (Coumadin) 2.5 mg PO ONETIME ONE Stop: 09/29/18 15:16 Last Admin: 09/29/18 16:10 Dose: 2.5 mg - Exam General: Alert Lungs: Clear to Auscultation, Normal Respiratory Effort Cardiovascular: Regular Rate, Regular Rhythm GI/Abdominal Exam: Normal Bowel Sounds, Soft - Problem List Review Problem List Initiated/Reviewed/Updated: Yes - Plan Plan:: This is a 88 y?O Female resident of [facility] [place], with past medical history of 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 Generalized anasarca, better, has lost water weight 2. Hypokalemia: continue potassium supplementation, follow BMP regularly 3. Hypertension: BP acceptable and will continue coreg at o 3.125 mg BID [ was at 6.25 mg BID] and aldactone at 25 mg daily 4. Chronic A-fib: rate is controlled and continue coreg at 3.125 mg BID -continue coumadin and pharmacy to dose and follow INR 5. CKD stage IV: This is likely from Hypertension and cardiorenal Syndrome II -base line creatinine 1.8-2.2 mg/dl -Discussed with pt and she does not want any form of CYTOLOGIST, manage medically 6. DVT prophylaxis: On warfarin and INR acceptable 7. GI prophylaxix: continue protonix 8. Hypomagnesemia: It is chronic and will continue Magnesium oxide 250 mg BID 9. Disposition: will be discharged to [facility] 09/30/2018 Code Status: DNR/DNI
[2018-09-30 08:25] VITALS: BP 121/43
[2018-09-30] MEDS ORDERED: Allopurinol 100 MG Tab PO ONE (09:00)
[2018-09-30] MEDS: Potassium Chloride 10 MEQ Tab.ER PO SCH (09:02)
[2018-09-30] MEDS: Spironolactone 25 MG Tab PO SCH (09:03)
[2018-09-30] MEDS: Docusate Sodium 100 MG Cap PO SCH (09:03)
[2018-09-30] MEDS: Calcitriol 0.25 MCG Cap PO SCH (09:04)
[2018-09-30] MEDS: Metolazone 2.5 MG Tab PO SCH (09:04)
[2018-09-30] MEDS: Carboxymethylcellulose Sodium 1% Ophth Gel 0.4 ML UD EYEBOTH SCH (09:05)
[2018-09-30] MEDS: Bumetanide 1 MG/4 ML MDV IVPUSH SCH (09:06)
[2018-09-30] MEDS: Carvedilol 3.125 MG Tab PO SCH (10:31)
== END 2018-09-30 11:00 | DRG 699 ==
LOC: UNDOADMIN 12:29 → DL.MS 12:29
PROVIDERS: ADMIT Internal Medicine; ATTEND Internal Medicine
DX: N04.9 Nephrotic syndrome with unspecified morphologic changes (principal); I13.0 Hypertensive heart and chronic kidney disease with heart failure and stage 1 through stage 4 chronic kidney disease, or unspecified chronic kidney disease; N25.81 Secondary hyperparathyroidism of renal origin; N18.4 Chronic kidney disease, stage 4 (severe); E87.6 Hypokalemia; T50.2X5A Adverse effect of carbonic-anhydrase inhibitors, benzothiadiazides and other diuretics, initial encounter; Y92.230 Patient room in hospital as the place of occurrence of the external cause; I48.2 Chronic atrial fibrillation; Z66 Do not resuscitate; E83.42 Hypomagnesemia; I50.9 Heart failure, unspecified; I25.10 Atherosclerotic heart disease of native coronary artery without angina pectoris; I73.9 Peripheral vascular disease, unspecified; I48.91 Unspecified atrial fibrillation; E78.5 Hyperlipidemia, unspecified; M10.9 Gout, unspecified; I27.20 Pulmonary hypertension, unspecified; Z95.0 Presence of cardiac pacemaker; I49.5 Sick sinus syndrome; Z91.041 Radiographic dye allergy status; Z95.1 Presence of aortocoronary bypass graft; Z79.01 Long term (current) use of anticoagulants; Z79.899 Other long term (current) drug therapy
CPT/HCPCS: 36415; 51701; 51702; 71250; 74176; 80048; 80053; 82565; 83735; 83880; 84132; 84520; 84550; 85014; 85018; 85025; 85049; 85610; A9270-GY; J1940; J3480; J3490; J7050